=== PATIENT | male | born 1950 | race Caucasian/White ===

== ENCOUNTER → 2018-07-04 08:26 | Outpatient (CLI) | payer OTHER, SELFPAY ==
--- NOTE | 2018-07-04 | DI.US.S_ITS ---
PROCEDURE: US ABD AORTA ANEURYSM SCREEN INDICATIONS: FORMER SMOKER TECHNIQUE: Real time scanning was performed of the aorta and iliac arteries, with image documentation. COMPARISON: None. FINDINGS: Aorta: Proximal aortic diameter measures 2.7 cm. Mid-aorta measures 1.9 cm. Distal aortic diameter is 1.3 cm. Iliac arteries: Right common iliac artery measures 0.8 cm. Left common iliac artery measures 0.8 cm. IMPRESSION: Unremarkable exam. Dictated by: Nica Gill M.D. on 07/04/2018 at 12:50 Approved by: Nica Gill M.D. on 07/04/2018 at 12:51
== END ==
PROVIDERS: Visit Provider Family Medicine
DX: Z13.6 Encounter for screening for cardiovascular disorders (principal)
CPT/HCPCS: 76706

== ENCOUNTER → 2019-05-01 12:56 | Outpatient (CLI) | payer OTHER, MEDICAID, SELFPAY ==
--- NOTE | 2019-05-01 | DI.US.S_ITS ---
PROCEDURE: US PERIPH VENOUS LOW EXTREM RT INDICATIONS: LOCALIZED SWELLING OF RT LOWER LEG TECHNIQUE: Real-time imaging, as well as color and pulse Doppler interrogation, were performed of the lower extremity deep veins from the inguinal ligament to the popliteal fossa. COMPARISON: None. FINDINGS: Within the right popliteal vein, there is thrombus seen, which is nearly occlusive. The common femoral, and femoral veins are normally compressible, and free of intraluminal thrombus. Color and pulse Doppler demonstrate normal phasic intraluminal flow. There is normal augmentation response to distal compression maneuver. IMPRESSION: Popliteal deep venous thrombosis seen. Note: Concordant preliminary findings given by the workers compensation coordinator upon the completion of the examination to Dr. Hernandez at 1:37 PM [place] time on May 01, 2019. Dictated by: Kendall Loredo M.D. on 05/01/2019 at 12:41 Approved by: Kendall Loredo M.D. on 05/01/2019 at 12:42
== END ==
PROVIDERS: Visit Provider Family Medicine
DX: I82.431 Acute embolism and thrombosis of right popliteal vein (principal)
CPT/HCPCS: 93971

== ENCOUNTER 2023-04-19 18:21 | Emergency (ER) | payer OTHER, MEDICAID, SELFPAY ==
[2023-04-19 18:47] VITALS: BP 157/81; PULSE 65; RESP 18; TEMP 36.6; O2SAT 97; BMI 28.3
--- NOTE | 2023-04-19 18:56 | DI.RAD.S_ITS ---
PROCEDURE: XR CHEST 2V INDICATIONS: cough, pain with deep inspiration, blood streaked sputum TECHNIQUE: 2 views of the chest were acquired. COMPARISON: [facility], , CHEST 2 VIEW, 08/09/2012, 10:29. FINDINGS: Surgical changes and devices: None. Lungs and pleura: Lungs are clear. No pleural effusions or pneumothorax. Mediastinum: Mediastinal contours are normal. Heart size is normal. Bones and chest wall: No suspicious bony abnormalities. Soft tissues appear unremarkable. IMPRESSION: No acute cardiopulmonary process. Dictated by: Reymundo Torres M.D. on 04/19/2023 at 19:22 Approved by: Reymundo Torres M.D. on 04/19/2023 at 19:23
--- NOTE | 2023-04-19 20:52 | ED.BACK ---
HPI - Back Pain/Injury General Chief Complaint: Back Pain/Injury Stated Complaint: Back/side strain, Coughing blood Time Seen by Provider: 04/19/23 20:42 Source: patient Mode of arrival: Ambulatory History of Present Illness HPI Narrative: Patient is a 72-year-old male who states that a couple days ago he was working outside. He states that he was pulling on a tree branch with his left arm. He states that he felt like he pulled the muscles in his back. He states the pain is radiating up and down the left side of his back. He thinks that things have improved someone since the onset although he has had some blood-streaked in his sputum when he has coughed forcefully. He denies any shortness of breath. No fevers. Related Data Allergies Allergy/AdvReac Type Severity Reaction Status Date / Time bee venom protein (honey bee) Allergy Intermediate Verified 04/19/23 18:56 Review of Systems Constitutional Constitutional: Reports system reviewed and no additional complaints, except as documented Respiratory Respiratory: Reports system reviewed and no additional complaints, except as documented Gastrointestinal Gastrointestinal: Reports system reviewed and no additional complaints, except as documented Integumentary/Breasts Skin/Breast: Reports system reviewed and no additional complaints, except as documented Hematologic/Lymphatic On Anticoagulants: No Patient History Social History Smoking Status: Current every day smoker Smoking Status: Current every day smoker alcohol intake frequency: holidays/special occasions only Substance Use Type: marijuana Exam Initial Vital Signs Initial Vital Signs: Vital Signs Temperature 97.9 F 04/19/23 18:47 Pulse Rate 65 04/19/23 18:47 Respiratory Rate 18 04/19/23 18:47 Blood Pressure 157/81 H 04/19/23 18:47 Pulse Oximetry 97 04/19/23 18:47 Oxygen Delivery Method Room Air 04/19/23 18:47 Resp Effort & Inspection: normal respiratory effort Auscultation: clear to auscultation bilaterally Cardio Rate: regular rate GI Inspection: normal to inspection Back/Spine/Pelvis Thoracic/Lumbar Spine: paraspinal tenderness and No thoracic spinal tenderness Skin General: no rashes or lesions noted Neuro General: patient alert, patient awake and moves all extremities Extrem General: normal to inspection and capillary refill normal Course Orders Ordered: ED Orders 04/19/23 18:56 XR chest 2V Stat Vital Signs Vital signs: Vital Signs - 8 hr 04/19/23 18:47 Temperature 97.9 F Pulse Rate 65 Respiratory Rate 18 Blood Pressure 157/81 H Pulse Oximetry 97 Oxygen Delivery Method Room Air MDM - Back Pain/Injury Imaging Data Chest x-ray: Radiologist's Impression: PROCEDURE:? XR CHEST 2V ? INDICATIONS:? cough, pain with deep inspiration, blood streaked sputum ? TECHNIQUE:? 2 views of the chest were acquired.? ? COMPARISON:? [facility], , CHEST 2 VIEW, 08/09/2012, 10:29. ? FINDINGS:? ? Surgical changes and devices:? None.? ? Lungs and pleura:? Lungs are clear.? No pleural effusions or pneumothorax.? ? Mediastinum:? Mediastinal contours are normal.? Heart size is normal.? ? Bones and chest wall:? No suspicious bony abnormalities.? Soft tissues appear unremarkable.? ? IMPRESSION:? No acute cardiopulmonary process. [facility] Narrative Medical decision making narrative: No respiratory distress. Chest x-ray is unremarkable. No fractured ribs. No skin changes over the area. I suspect that the blood-tinged sputum is the result of his hard coughing but there is no signs of infection. Reassured patient. Was given return precautions. He expressed understanding and agreement. Discharge Plan Departure Patient Disposition: Home Clinical Impression: Flank strain Instructions: DI for Muscle Strain Activity Restrictions/Additional Instructions: I recommend you continue to take all of your medications as directed. Contact your primary provider for a follow-up. Return to the emergency department for new or worsening symptoms. Stand Alone Forms: Patient Portal/API
== END 2023-04-19 21:04 | disposition home or self-care (01) ==
PROVIDERS: Emergency Provider Emergency Medicine
DX: S39.012A Strain of muscle, fascia and tendon of lower back, initial encounter (principal); X58.XXXA Exposure to other specified factors, initial encounter
CPT/HCPCS: 71046; 99281; 99283

== ENCOUNTER 2023-08-03 17:10 | Inpatient (IN) | payer OTHER, MEDICAID, SELFPAY ==
[2023-08-03] VITALS (16 sets, daily range): BP systolic 126–176; BP diastolic 77–117; PULSE 74–152; RESP 14–25; TEMP 36.6–36.8; O2SAT 94–98; BMI 28.3
--- NOTE | 2023-08-03 18:04 | DI.RAD.S_ITS ---
PROCEDURE: XR CHEST 2V INDICATIONS: dyspnea TECHNIQUE: 2 views of the chest were acquired. COMPARISON: [facility], CR, XR CHEST 2V, 04/19/2023, 19:10. FINDINGS: Surgical changes and devices: None. Lungs and pleura: Focal small area of consolidation in the lingula of the left lung. Small bilateral pleural effusions. No pleural effusions or pneumothorax. Mediastinum: Mediastinal contours are normal. Heart size is normal. Bones and chest wall: No suspicious bony abnormalities. Soft tissues appear unremarkable. IMPRESSION: Small focal pneumonia in the lingula of the left lung. Small bilateral pleural effusions. Comment: Progress films are recommended until clear. Dictated by: Skip Ochoa M.D. on 08/03/2023 at 18:31 Approved by: Skip Ochoa M.D. on 08/03/2023 at 18:33
--- NOTE | 2023-08-03 18:06 | ED.EXTPRO ---
HPI - Extremity Problem <Sultana Dockery PA-C - Last Filed: 08/03/23 19:01> General Chief complaint: Extremity Problem,Nontraumatic Stated complaint: Left leg possible DVT, Doctor referred Time Seen by Provider: 08/03/23 17:47 Source: patient Mode of arrival: Ambulatory History of Present Illness HPI Narrative: Patient is a 72-year-old male with a long history of smoking, currently uses nicotine lozenges and occasional marijuana, who presents with approximately 1 month of shortness of breath. He denies fever or chills. Has occasional pleuritic chest pain, no chest pressure. Reports a family history heart disease, history of a murmur as a child. History of unprovoked right lower extremity DVT, took Eliquis for some time. Complains of posterior left knee pain several weeks ago that has now migrated to his left thigh. Thinks he may have trace left lower extremity edema, no left calf pain. Related Data Home Medications Medication Instructions Recorded Confirmed lisinopril 20 mg tablet 20 mg PO DAILY 08/03/23 08/03/23 oxycodone 5 mg tablet 5 mg PO Q4H PRN Pain (Scale Score 08/03/23 08/03/23 7-10) Allergies Allergy/AdvReac Type Severity Reaction Status Date / Time bee venom protein (honey bee) Allergy Intermediate Verified 08/03/23 17:15 Review of Systems <Sultana Dockery PA-C - Last Filed: 08/03/23 19:01> Review of Systems ROS Unobtainable: All systems reviewed & are unremarkable except as noted in HPI and below Patient History <Sultana Dockery PA-C - Last Filed: 08/03/23 19:01> Social History household members: spouse Smoking Status: Former smoker Smoking Status: Former smoker alcohol intake frequency: holidays/special occasions only Substance Use Type: marijuana Exam <Sultana Dockery PA-C - Last Filed: 08/03/23 19:01> Narrative Exam Narrative: GENERAL: 72 year old patient appears stated age. Well-developed patient, in no acute distress. NEURO: AOx3. HEAD: Atraumatic. Normocephalic. EYES: Pupils equal round and reactive. Extraocular motions intact. No scleral icterus. No injection or drainage. ENT: Nose without bleeding or purulent drainage. Airway patent. NECK: Trachea midline. Non tender CARDIOVASCULAR: Regularly irregular, rate 70-120 RESPIRATORY: Clear to auscultation. Breath sounds equal bilaterally. No wheezes, rales, or rhonchi. GASTROINTESTINAL: Abdomen soft, non-tender, nondistended. EXTREMITIES: Trace edema in left lower extremity, no edema in right lower extremity. No calf tenderness or redness. No abnormality of left thigh where patient is currently having pain. Distal pulses intact. SKIN: No rash or erythema of visible areas Initial Vital Signs Initial Vital Signs: Vital Signs Temperature 97.8 F 08/03/23 17:15 Pulse Rate 74 08/03/23 17:15 Respiratory Rate 18 08/03/23 17:15 Blood Pressure 129/93 H 08/03/23 17:15 Pulse Oximetry 97 08/03/23 17:15 Oxygen Delivery Method Room Air 08/03/23 17:15 <DO Reji Winkler Last Filed: 08/04/23 00:40> Initial Vital Signs Initial Vital Signs: Vital Signs Temperature 97.8 F 08/03/23 17:15 Pulse Rate 74 08/03/23 17:15 Respiratory Rate 18 08/03/23 17:15 Blood Pressure 129/93 H 08/03/23 17:15 Pulse Oximetry 97 08/03/23 17:15 Oxygen Delivery Method Room Air 08/03/23 17:15 Scores <DEMETRIA Pike Last Filed: 08/03/23 19:01> Reshma Criteria for DVT Active Cancer (Treatment within 6 months): No Bedridden recently >3 days or major surgery within 4 weeks: No Calf Swelling >3cm compared to other leg: No Collateral (nonvericose) superficial veins present: No Entire leg swollen: Yes Localized tenderness along the deep vein system: No Pitting edema, confined to symtomatic leg: No Paralysis, paresis, or recent plaster immobilization of ext: No Previously documented DVT: Yes Alternative dx to DVT as likely or more likely: Yes Reshma criteria for DVT: 0 <DO Reji Winkler Last Filed: 08/04/23 00:40> Reshma Criteria for DVT Kyree' criteria for DVT: 0 Course <DEMETRIA Pike Last Filed: 08/03/23 19:01> Orders Ordered: ED Orders 08/03/23 18:03 EKG-12 Lead Stat 08/03/23 18:04 XR chest 2V Stat 08/03/23 18:26 BNP [NT-proBNP (BNP-Adult 18+)] Stat Complete Blood Count AUTO DIFF Stat Comprehensive Metabolic Panel Stat D Dimer Stat Lipase Stat MAG [Magnesium] Stat PT [Prothrombin Time INR] Stat PTT Partial Thromboplastin Paulino Stat Troponin & CK Cardiac Panel Stat 08/03/23 19:10 CT angio chest PE protocol Stat US periph venous low extrem lt Stat 08/03/23 20:31 Trop I [Troponin I] Stat 08/03/23 22:20 PTT Partial Thromboplastin Paulino Q6H 08/03/23 22:20 EC echo doppler complete Urgent Arterial Blood Gas Urgent RT Consult Eval and Treat NOW 08/04/23 05:00 Complete Blood Count AUTO DIFF Routine Comprehensive Metabolic Panel Routine Magnesium Routine Troponin I Routine EKG-12 Lead Routine 08/04/23 09:00 PTT Partial Thromboplastin Paulino Q6H 08/04/23 10:20 PTT Partial Thromboplastin Paulino Q6H 08/04/23 16:20 PTT Partial Thromboplastin Paulino Q6H 08/05/23 05:00 Hemoglobin and Hematocrit DAILY Platelet Count DAILY Acetaminophen (Acetaminophen 325 Mg Tablet) 650 mg PO Q6H PRN PRN Reason: Fever/Mild Pain (1-3) Hydrocodone Bitart/Acetaminophen (Hydrocodone/Acet 5/325 Tablet) 1 tab PO Q4H PRN PRN Reason: Pain, Moderate (4-6) DILTIAZEM (Diltiazem 125 Mg/125 Ml-D5w) 125 mg in 125 mls @ 5 mls/hr IV TITRATE STA; Protocol Stop: 08/04/23 22:30 Last Admin: 08/03/23 23:13 Dose: 15 mg/hr, 15 mls/hr Documented By: JUAN Lactated Ringer's (Lactated Ringers) 1,000 mls @ 75 mls/hr IV CONT SHEMAR Last Admin: 08/03/23 23:16 Dose: 75 mls/hr Documented By: JUAN Heparin Sodium/Dextrose (Heparin Drip) 25,000 unit in 500 mls @ 35.108 mls/hr IV CONT SHEMAR; Protocol Last Admin: 08/03/23 23:14 Dose: 18 units/kg/hr, 35.108 mls/hr Documented By: JUAN Co-signed By: [place] Lorazepam (Lorazepam 2 Mg/Ml Inj) 1 mg IV Q4HR PRN PRN Reason: Anxiety Naloxone HCl (Naloxone 0.4 Mg/Ml Vial) 0.2 mg IV Q2MIN PRN PRN Reason: Opiate Reversal Oxycodone HCl (Oxycodone Ir 5 Mg Tablet) 5 mg PO Q4HR PRN PRN Reason: Pain, Moderate (4-6) Pantoprazole Sodium (Pantoprazole 40 Mg Vial) 40 mg IV DAILY SHEMAR Discontinued Medications Diltiazem HCl (Diltiazem 5 Mg/Ml Sdv) 10 mg IV NOW ONE Stop: 08/03/23 19:16 Last Admin: 08/03/23 19:20 Dose: 10 mg Documented By: DAVID Heparin Sodium (Porcine) (Heparin 5,000 Unit/Ml Vial) 7,800 unit 80 unit/kg (7800 unit) IV NOW ONE Stop: 08/03/23 20:36 Last Admin: 08/03/23 20:47 Dose: 7,800 unit Documented By: DAVID DILTIAZEM (Diltiazem 125 Mg/125 Ml-D5w) 125 mg in 125 mls @ 5 mls/hr IV TITRATE SHEMAR; Protocol Last Titration: 08/03/23 20:36 Dose: 10 mg/hr, 10 mls/hr Documented By: Admin: 08/03/23 19:49 Dose: 5 mg/hr, 5 mls/hr Documented By: DAVID Heparin Sodium/Dextrose (Heparin Drip) 25,000 unit in 500 mls @ 35.108 mls/hr IV CONT SHEMAR; Protocol Last Admin: 08/03/23 20:49 Dose: 18 units/kg/hr, 35.108 mls/hr Documented By: DAVID Co-signed By: ANDRE Lisinopril (Lisinopril 20 Mg Tablet) 40 mg PO NOW ONE Stop: 08/04/23 00:32 Nicotine (Nicotine 14 Patch) 14 mg TOP NOW ONE Stop: 08/03/23 22:21 Last Admin: 08/03/23 23:52 Dose: Not Given Documented By: JUAN Vital Signs Vital signs: Vital Signs - 8 hr 08/03/23 17:15 08/03/23 17:56 08/03/23 18:00 Temperature 97.8 F Pulse Rate 74 86 94 H Respiratory Rate 18 Blood Pressure 129/93 H Pulse Oximetry 97 97 97 Oxygen Delivery Method Room Air 08/03/23 18:25 08/03/23 18:25 08/03/23 18:30 Temperature Pulse Rate 152 H 137 H Respiratory Rate 18 Blood Pressure 139/100 H Pulse Oximetry 97 96 Oxygen Delivery Method 08/03/23 19:00 08/03/23 19:00 08/03/23 19:20 Temperature Pulse Rate 141 H 141 H Respiratory Rate 14 Blood Pressure 128/77 128/77 Pulse Oximetry 98 Oxygen Delivery Method 08/03/23 19:30 08/03/23 19:32 08/03/23 19:32 Temperature Pulse Rate 137 H 148 H Respiratory Rate 18 Blood Pressure 153/109 H Pulse Oximetry 98 98 Oxygen Delivery Method 08/03/23 20:00 08/03/23 20:30 08/03/23 20:30 Temperature Pulse Rate 124 H 133 H Respiratory Rate 14 14 Blood Pressure 126/89 Pulse Oximetry 96 97 Oxygen Delivery Method 08/03/23 21:00 08/03/23 21:00 Temperature Pulse Rate 130 H Respiratory Rate 16 Blood Pressure 137/106 H Pulse Oximetry 97 Oxygen Delivery Method <Elyssa Logan, DO - Last Filed: 08/04/23 00:40> Orders Ordered: ED Orders 08/03/23 18:03 EKG-12 Lead Stat 08/03/23 18:04 XR chest 2V Stat 08/03/23 18:26 BNP [NT-proBNP (BNP-Adult 18+)] Stat Complete Blood Count AUTO DIFF Stat Comprehensive Metabolic Panel Stat D Dimer Stat Lipase Stat MAG [Magnesium] Stat PT [Prothrombin Time INR] Stat PTT Partial Thromboplastin Paulino Stat Troponin & CK Cardiac Panel Stat 08/03/23 19:10 CT angio chest PE protocol Stat US periph venous low extrem lt Stat 08/03/23 20:31 Trop I [Troponin I] Stat 08/03/23 22:20 PTT Partial Thromboplastin Paulino Q6H 08/03/23 22:20 EC echo doppler complete Urgent Arterial Blood Gas Urgent RT Consult Eval and Treat NOW 08/04/23 05:00 Complete Blood Count AUTO DIFF Routine Comprehensive Metabolic Panel Routine Magnesium Routine Troponin I Routine EKG-12 Lead Routine 08/04/23 09:00 PTT Partial Thromboplastin Paulino Q6H 08/04/23 10:20 PTT Partial Thromboplastin Paulino Q6H 08/04/23 16:20 PTT Partial Thromboplastin Paulino Q6H 08/05/23 05:00 Hemoglobin and Hematocrit DAILY Platelet Count DAILY Acetaminophen (Acetaminophen 325 Mg Tablet) 650 mg PO Q6H PRN PRN Reason: Fever/Mild Pain (1-3) Hydrocodone Bitart/Acetaminophen (Hydrocodone/Acet 5/325 Tablet) 1 tab PO Q4H PRN PRN Reason: Pain, Moderate (4-6) DILTIAZEM (Diltiazem 125 Mg/125 Ml-D5w) 125 mg in 125 mls @ 5 mls/hr IV TITRATE STA; Protocol Stop: 08/04/23 22:30 Last Admin: 08/03/23 23:13 Dose: 15 mg/hr, 15 mls/hr Documented By: JUAN Lactated Ringer's (Lactated Ringers) 1,000 mls @ 75 mls/hr IV CONT SHEMAR Last Admin: 08/03/23 23:16 Dose: 75 mls/hr Documented By: JUAN Heparin Sodium/Dextrose (Heparin Drip) 25,000 unit in 500 mls @ 35.108 mls/hr IV CONT SHEMAR; Protocol Last Admin: 08/03/23 23:14 Dose: 18 units/kg/hr, 35.108 mls/hr Documented By: JUAN Co-signed By: [place] Lorazepam (Lorazepam 2 Mg/Ml Inj) 1 mg IV Q4HR PRN PRN Reason: Anxiety Naloxone HCl (Naloxone 0.4 Mg/Ml Vial) 0.2 mg IV Q2MIN PRN PRN Reason: Opiate Reversal Oxycodone HCl (Oxycodone Ir 5 Mg Tablet) 5 mg PO Q4HR PRN PRN Reason: Pain, Moderate (4-6) Pantoprazole Sodium (Pantoprazole 40 Mg Vial) 40 mg IV DAILY SHEMAR Discontinued Medications Diltiazem HCl (Diltiazem 5 Mg/Ml Sdv) 10 mg IV NOW ONE Stop: 08/03/23 19:16 Last Admin: 08/03/23 19:20 Dose: 10 mg Documented By: DAVID Heparin Sodium (Porcine) (Heparin 5,000 Unit/Ml Vial) 7,800 unit 80 unit/kg (7800 unit) IV NOW ONE Stop: 08/03/23 20:36 Last Admin: 08/03/23 20:47 Dose: 7,800 unit Documented By: DAVID DILTIAZEM (Diltiazem 125 Mg/125 Ml-D5w) 125 mg in 125 mls @ 5 mls/hr IV TITRATE SHEMAR; Protocol Last Titration: 08/03/23 20:36 Dose: 10 mg/hr, 10 mls/hr Documented By: Admin: 08/03/23 19:49 Dose: 5 mg/hr, 5 mls/hr Documented By: DAVID Heparin Sodium/Dextrose (Heparin Drip) 25,000 unit in 500 mls @ 35.108 mls/hr IV CONT SHEMAR; Protocol Last Admin: 08/03/23 20:49 Dose: 18 units/kg/hr, 35.108 mls/hr Documented By: DAVID Co-signed By: ANDRE Lisinopril (Lisinopril 20 Mg Tablet) 40 mg PO NOW ONE Stop: 08/04/23 00:32 Nicotine (Nicotine 14 Patch) 14 mg TOP NOW ONE Stop: 08/03/23 22:21 Last Admin: 08/03/23 23:52 Dose: Not Given Documented By: JUAN Vital Signs Vital signs: Vital Signs - 8 hr 08/03/23 17:15 08/03/23 17:56 08/03/23 18:00 Temperature 97.8 F Pulse Rate 74 86 94 H Respiratory Rate 18 Blood Pressure 129/93 H Pulse Oximetry 97 97 97 Oxygen Delivery Method Room Air 08/03/23 18:25 08/03/23 18:25 08/03/23 18:30 Temperature Pulse Rate 152 H 137 H Respiratory Rate 18 Blood Pressure 139/100 H Pulse Oximetry 97 96 Oxygen Delivery Method 08/03/23 19:00 08/03/23 19:00 08/03/23 19:20 Temperature Pulse Rate 141 H 141 H Respiratory Rate 14 Blood Pressure 128/77 128/77 Pulse Oximetry 98 Oxygen Delivery Method 08/03/23 19:30 08/03/23 19:32 08/03/23 19:32 Temperature Pulse Rate 137 H 148 H Respiratory Rate 18 Blood Pressure 153/109 H Pulse Oximetry 98 98 Oxygen Delivery Method 08/03/23 20:00 08/03/23 20:30 08/03/23 20:30 Temperature Pulse Rate 124 H 133 H Respiratory Rate 14 14 Blood Pressure 126/89 Pulse Oximetry 96 97 Oxygen Delivery Method 08/03/23 21:00 08/03/23 21:00 Temperature Pulse Rate 130 H Respiratory Rate 16 Blood Pressure 137/106 H Pulse Oximetry 97 Oxygen Delivery Method MDM - Extremity (Nontraumatic) <Sultana Dockery PA-C - Last Filed: 08/03/23 19:01> Lab Data 08/03/23 18:26 08/03/23 18:26 Labs: Lab Results 08/03/23 08/03/23 Range/Units 18:26 20:31 WBC 10.6 (4.5-11.0) X10^3/uL RBC 4.79 (4.5-5.9) X10^6/uL Hgb 14.3 (13.5-17.5) g/dL Hct 42.6 (41-53) % MCV 88.9 (80-100) fL MCH 29.9 (26-34) PG MCHC 33.6 (30-36) % RDW 16.5 H (11.6-14.8) % Plt Count 222 (150-400) X10^3/uL Neut % (Auto) 79.4 H (50-75) % Lymph % (Auto) 14.0 L (25-40) % Gregory % (Auto) 4.8 (3-14) % Eos % (Auto) 0.9 L (2-4) % Baso % (Auto) 0.9 (0-2) % Neut # (Auto) 8400 H (3436-4593) /uL Lymph # (Auto) 1500 (8834-3798) /uL Gregory # (Auto) 500 (0-900) /uL Eos # (Auto) 100 (0-450) /uL Baso # (Auto) 100 (0-100) /uL PT 13.2 H (9.4-12.5) SECONDS INR 1.2 (0.9-1.3) APTT 26 (25.1-36.5) SECONDS D-Dimer 59121 H (<500) ng/ml Sodium 137 (137-145) mmol/L Potassium 4.2 (3.4-5.1) mmol/L Chloride 102 (98-107) mmol/L Carbon Dioxide 31 (22-32) mmol/L BUN 21 H (9-20) mg/dL Creatinine 1.14 (0.66-1.25) mg/dL Estimated GFR > 60 (>60) mL/min BUN/Creatinine Ratio 18.4 (6-22) Glucose 129 H (80-110) mg/dL Calcium 9.4 (8.4-10.2) mg/dL Magnesium 1.9 (1.6-2.3) mg/dL Total Bilirubin 0.8 (0.2-1.3) mg/dL AST 29 (17-59) IU/L ALT 25 (<50) IU/L Alkaline Phosphatase 63 (38-126) U/L Total Creatine Kinase 65 (55-170) U/L Troponin I 0.055 H 0.053 H (0.01-0.034) ng/mL NT-Pro-B Natriuret Pep 5380 H (<125) pg/mL Total Protein 7.2 (6.3-8.2) g/dL Albumin 3.7 (3.5-5.0) g/dL Globulin 3.5 (1.7-4.1) g/dL Albumin/Globulin Ratio 1.1 (1.0-2.8) Lipase 52 (23-300) U/L MDM Narrative Medical decision making narrative: Multiple etiologies for patient's symptoms considered including, but not limited to: Pneumonia, CHF, COPD, DVT, PE, AFib Patient with approximately 1 month of shortness of breath. No evidence of fluid overload or infection. On exam, patient immediately noted to have irregular heart rate and rhythm with a rate 70s to 120s. Patient denies any palpitations or chest pain. We will obtain EKG, chest x-ray, labs including d dimer. Patient has history of DVT. Has trace edema of the left lower extremity today without calf swelling or tenderness. Wells criteria score 0. End of shift sign-out to Dr. Logan who will continue care. <Elyssa Logan, - Last Filed: 08/04/23 00:40> Lab Data Labs: Lab Results 08/03/23 08/03/23 Range/Units 18:26 20:31 WBC 10.6 (4.5-11.0) X10^3/uL RBC 4.79 (4.5-5.9) X10^6/uL Hgb 14.3 (13.5-17.5) g/dL Hct 42.6 (41-53) % MCV 88.9 (80-100) fL MCH 29.9 (26-34) PG MCHC 33.6 (30-36) % RDW 16.5 H (11.6-14.8) % Plt Count 222 (150-400) X10^3/uL Neut % (Auto) 79.4 H (50-75) % Lymph % (Auto) 14.0 L (25-40) % Gregory % (Auto) 4.8 (3-14) % Eos % (Auto) 0.9 L (2-4) % Baso % (Auto) 0.9 (0-2) % Neut # (Auto) 8400 H (0170-0830) /uL Lymph # (Auto) 1500 (8466-8168) /uL Gregory # (Auto) 500 (0-900) /uL Eos # (Auto) 100 (0-450) /uL Baso # (Auto) 100 (0-100) /uL PT 13.2 H (9.4-12.5) SECONDS INR 1.2 (0.9-1.3) APTT 26 (25.1-36.5) SECONDS D-Dimer 78584 H (<500) ng/ml Sodium 137 (137-145) mmol/L Potassium 4.2 (3.4-5.1) mmol/L Chloride 102 (98-107) mmol/L Carbon Dioxide 31 (22-32) mmol/L BUN 21 H (9-20) mg/dL Creatinine 1.14 (0.66-1.25) mg/dL Estimated GFR > 60 (>60) mL/min BUN/Creatinine Ratio 18.4 (6-22) Glucose 129 H (80-110) mg/dL Calcium 9.4 (8.4-10.2) mg/dL Magnesium 1.9 (1.6-2.3) mg/dL Total Bilirubin 0.8 (0.2-1.3) mg/dL AST 29 (17-59) IU/L ALT 25 (<50) IU/L Alkaline Phosphatase 63 (38-126) U/L Total Creatine Kinase 65 (55-170) U/L Troponin I 0.055 H 0.053 H (0.01-0.034) ng/mL NT-Pro-B Natriuret Pep 5380 H (<125) pg/mL Total Protein 7.2 (6.3-8.2) g/dL Albumin 3.7 (3.5-5.0) g/dL Globulin 3.5 (1.7-4.1) g/dL Albumin/Globulin Ratio 1.1 (1.0-2.8) Lipase 52 (23-300) U/L ECG Data Attestation EKG: I personally reviewed and interpreted this ECG as follows: Interpretation: Rate of 126 QRS is 72 QTC of 411. No acute ST elevation or depression, nonspecific change. MDM Narrative Medical decision making narrative: Multiple etiologies for patient's symptoms considered including, but not limited to: Pneumonia, CHF, COPD, DVT, PE, AFib Patient with approximately 1 month of shortness of breath. No evidence of fluid overload or infection. On exam, patient immediately noted to have irregular heart rate and rhythm with a rate 70s to 120s. Patient denies any palpitations or chest pain. We will obtain EKG, chest x-ray, labs including d dimer. Patient has history of DVT. Has trace edema of the left lower extremity today without calf swelling or tenderness. Wells criteria score 0. End of shift sign-out to Dr. Logan who will continue care. Patient signed out to myself after patient developed AFib RVR. Patient was started with 10 mg adult had some slowing of his heart rate but persistent was started on a diltiazem drip. Workup shows indeterminate troponin, BNP is quite elevated, chest x-ray shows possible consolidation. Patient does not have any infectious changes suspect symptoms are somewhat related to CHF. He is noticed left lower extremity swelling does have a history DVT is not currently anticoagulated. States that they never figured out why he had a blood clot in the past. He did smoke until about 2 or 3 weeks ago. D-dimer was elevated on CT angio shows multiple acute PEs including right main pulmonary embolus and occlusive emboli to the right upper lobe and right middle, normal LV/RV ratio, questionable mild cardiomegaly, questionable masslike consolidation versus large mass lingular portion of the left upper lobe and probable pulmonary infarct right middle lobe with bilateral pleural effusions right greater than left, COPD and severe coronary artery calcification. Patient's also had a DVT ultrasound which was obtained which shows DVT in the left lower extremity throughout. PESI score is 111, right heart strain appreciated on CT angio. Heparin drip was initiated. Spoke with Dr. Francisco who accepts. Discussed CT findings normal LV RV ratio was not tachycardic initially but then jumped up. Likely not a candidate for intervention based on current findings but possibly with echo tomorrow. Repeat troponin is slightly downward at 0.053 Critical Care Time <Elyssa Logan, - Last Filed: 08/04/23 00:40> Critical Care Time Critical Care Time: Yes Total Critical Care Time: 35 Attestation: The high probability of a clinically significant, sudden or life threatening deterioration of the [cardiac, pulm] system(s) required my full and direct attention, intervention and personal management. The aggregate critical care time was [] minutes. This time is in addition to time spent performing reported procedures but includes the following: [x] Data Review and interpretation [x] Patient assessment and monitoring of vital signs [x] Documentation [x] Medication orders and management Discharge Plan Departure Patient Disposition: Admitted As Inpatient Clinical Impression: Pulmonary embolism and infarction, Left leg DVT, Atrial fibrillation with rapid ventricular response Admit Date/Time: 08/03/23 21:35 Admit Provider: Nicanor Francisco
--- NOTE | 2023-08-03 18:32 | PC.NURSE ---
patient stated that 2 weeks ago his left leg began having cramps and then the pain moved up his thigh. He also stated that he has been having SOB for about a month. He says that he recently has been feeling SOB while walking his dog.
[2023-08-03 18:36] LABS: Add Manual Diff / Slide Review NO; Basophils Absolute Auto 100 /uL (0-100); Basophils Percent Auto 0.9 % (0-2); Eosinophils Absolute Auto 100 /uL (0-450); Eosinophils Percent Auto 0.9 % (2-4); Hematocrit 42.6 % (41-53); Hemoglobin 14.3 g/dL (13.5-17.5); Lymphocytes Absolute Auto 1500 /uL (1100-4500); Mean Corpuscular HGB Conc 33.6 % (30-36); Mean Corpuscular Hemoglobin 29.9 PG (26-34); Mean Corpuscular Volume 88.9 fL (80-100); Monocytes Absolute Auto 500 /uL (0-900); Monocytes Percent Auto 4.8 % (3-14); Neutrophils Absolute Auto 8400 /uL (1500-7000); Neutrophils Percent Auto 79.4 % (50-75); Platelet Count 222 X10^3/uL (150-400); Red Blood Cell Count 4.79 X10^6/uL (4.5-5.9); Red Cell Distribution Width 16.5 % (11.6-14.8); White Blood Cell Count 10.6 X10^3/uL (4.5-11.0)
[2023-08-03 18:50] LABS: INR 1.2 (0.9-1.3); Prothrombin Time 13.2 SECONDS (9.4-12.5)
[2023-08-03 18:52] LABS: PTT Partial Thromboplastin Tim 26 SECONDS (25.1-36.5)
[2023-08-03 18:55] LABS: Magnesium 1.9 mg/dL (1.6-2.3)
[2023-08-03 18:57] LABS: Alanine Aminotransferase 25 IU/L (<50); Albumin 3.7 g/dL (3.5-5.0); Albumin Globulin Ratio 1.1 (1.0-2.8); Alkaline Phosphatase 63 U/L (38-126); Aspartate Aminotransferase 29 IU/L (17-59); BUN Creatinine Ratio 18.4 (6-22); Bilirubin Total 0.8 mg/dL (0.2-1.3); Blood Urea Nitrogen 21 mg/dL (9-20); Calcium 9.4 mg/dL (8.4-10.2); Carbon Dioxide 31 mmol/L (22-32); Chloride 102 mmol/L (98-107); Creatine Kinase 65 U/L (55-170); Estimated Glomerular Filt Rate > 60 mL/min (>60); Globulin 3.5 g/dL (1.7-4.1); Glucose 129 mg/dL (80-110); HEMOLYSIS < 15 (0-50); Lipase 52 U/L (23-300); Potassium 4.2 mmol/L (3.4-5.1); Sodium 137 mmol/L (137-145); Total Protein 7.2 g/dL (6.3-8.2)
[2023-08-03 19:06] LABS: D Dimer 12553 ng/ml (<500); NT-proBNP (BNP-Adult 18+) 5380 pg/mL (<125)
[2023-08-03 19:08] LABS: Troponin I 0.055 ng/mL (0.01-0.034)
--- NOTE | 2023-08-03 19:10 | DI.CT.S_ITS ---
PROCEDURE: CT ANGIO CHEST PE PROTOCOL INDICATIONS: new afib, sob x 1 month, LLE swelling, +dimer, hx dvt TECHNIQUE: After the administration of intravenous contrast, 2 mm thick sections acquired from the pulmonary apices to the posterior costophrenic angles. 3-dimensional maximum intensity projection (MIP) coronal and sagittal reformats were then acquired through the thorax. For radiation dose reduction, the following was used: automated exposure control, adjustment of mA and/or kV according to patient size. COMPARISON: None. FINDINGS: Image quality: Diagnostic. Pulmonary arteries: Right main pulmonary artery embolus with extension into the right upper lobe pulmonary artery and right middle lobe pulmonary artery where it is occlusive. There is right lower lobe basilar pulmonary artery embolus, as well. There is also left upper lobe lingular pulmonary artery embolus as well as nonocclusive left lower lobe pulmonary artery embolus. Lungs and pleura: Lobulated [id number] right pleural effusion. Small mildly lobulated left pleural effusion. Question masslike consolidation versus ill-defined mass involving the lingula of the left lung measuring 3.7 x 4.5 cm. Possible pulmonary infarct involving the right middle lobe with peripheral consolidation. Emphysematous change. Mediastinum: Question mild cardiomegaly. Normal RV LV ratio indicating that right heart strain may not be present. There is a small amount of reflux of contrast into the inferior vena cava. There is advanced coronary artery atherosclerotic calcification.. No mediastinal or hilar adenopathy. Thoracic aorta is normal in caliber and enhancement. Esophagus is normal in caliber, without hiatal hernia. Bones and chest wall: No suspicious bony lesions. Ribs and thoracic spine appear intact throughout. No axillary or supraclavicular adenopathy. No thyroid nodules which require sonographic follow up, per consensus guidelines. Upper Abdomen: Visualized upper abdominal solid organs appear normal in the early arterial phase of enhancement. IMPRESSION: 1. Multiple acute pulmonary emboli including right main pulmonary embolus and occlusive pulmonary emboli to the right upper lobe and right middle lobe pulmonary arteries. 2. Normal LV RV ratio. Question mild cardiomegaly. 3. Question masslike consolidation versus large mass in the lingular portion of the left upper lobe. Recommend follow-up CT in 2-3 months. 4. Probable pulmonary infarct in the right middle lobe. 5. Bilateral pleural effusions, right greater than left. 6. COPD. 7. Severe coronary artery calcifications. Comment: Consider ECHO to evaluate for the presence or absence of right heart strain. Recommend repeat CT in 2-3 months to re-evaluate the lingula of the left lung. Dictated by: Skip Ochoa M.D. on 08/03/2023 at 20:10 Approved by: Skip Ochoa M.D. on 08/03/2023 at 20:16
--- NOTE | 2023-08-03 19:10 | DI.US.S_ITS ---
PROCEDURE: US PERIPH VENOUS LOW EXTREM LT INDICATIONS: LLE swelling, new afib, sob, hx dvt TECHNIQUE: Real-time imaging, as well as color and pulse Doppler interrogation, were performed of the lower extremity deep veins from the inguinal ligament to the popliteal fossa, with documentation of the visualized calf veins. COMPARISON: None. FINDINGS: Greater saphenous vein is patent. Common femoral, profunda, femoral, and popliteal veins demonstrate occlusive thrombus. Calf veins are not well seen. IMPRESSION: Extensive DVT in the left lower extremity. Dictated by: Galdino Franco M.D. on 08/03/2023 at 20:30 Approved by: Galdino Franco M.D. on 08/03/2023 at 20:33
[2023-08-03] MEDS: dilTIAZem 5 MG/ML SDV 10 MG IV (19:20)
[2023-08-03] MEDS: DILTIAZEM 125 MG/125 ML PIGGYBACK IV (19:49)
[2023-08-03] MEDS: HEPARIN 5,000 UNIT/ML VIAL 7800 UNIT IV (20:47)
[2023-08-03] MEDS: HEPARIN DRIP 25,000 UNIT/500 ML IV.SOLN 35.108 UNIT IV ×2 (20:49→23:14)
[2023-08-03 21:11] LABS: Troponin I 0.053 ng/mL (0.01-0.034)
--- NOTE | 2023-08-03 22:20 | DI.ECHO.S_ITS ---
[facility] +---------+ : : [address] [place] : : : : [id number] : : : : Phone: [phone]+ Echocardiogram Report + + :Name: MICHAEL WEEKS Study Date: 08/04/2023 Height: 73 in : :[facility] ReadingLocation: Weight: 215 lb : : Gender: Male BSA: 2.2 m2 : :: 1950 Age: 72 yrs BP: 152/108 mmHg: :Reason For Study: ATRIAL FIBRILLATION : :Ordering Physician: FATOUMATA, : :PORFIRIO Performed By: Kimberly Arias : :Referring: PORFIRIO HAM : + + Interpretation Summary 1) Normal left ventricular thickness and size with moderately to severely systolic function (EF 30-35%). 2) Borderline enlarged right ventricle wtih mildly reduced function. 3) There is mild to moderate mitral regurgitation. 4) Atrial fibrillation present during the study. Hypertension also present during the study (BP 152/108mmHg). 5) The ascending aorta is mildly enlarged at 4.1cm. 6) No prior Echo available for comparison. Procedure: A two-dimensional transthoracic echocardiogram with color flow and Doppler was performed. The study quality was technically adequate. There is no prior echocardiogram noted for this patient. A contrast injection of Definity was performed to improve assessment of LV function. The patient was in atrial fibrillation with heart rates between 85-123 bpm during the exam. Left Ventricle: The left ventricle is normal in size and wall thickness. A false chord is noted (normal variant). The ejection fraction is estimated to be 30-35%. There is moderate to severe global hypokinesis of the left ventricle. Diastolic function could not be accurately assessed due to atrial fibrillation. Right Ventricle: The right ventricle is borderline dilated. Right ventricular systolic function is mildly reduced. Atria: The left atrium is moderately dilated. Right atrial size is normal. There is no Doppler evidence for an interatrial shunt. Mitral Valve: The mitral valve leaflets appear mildly thickened, but open well. There is mild to moderate mitral regurgitation. Aortic Valve: The aortic valve is mildly calcified. There is discrete nodular thickening of the non- coronary cusp. There is mild aortic valve sclerosis. There is no aortic valve stenosis. There is mild aortic regurgitation. Tricuspid Valve: The tricuspid valve leaflets are thin and pliable. There is mild tricuspid regurgitation. Pulmonary artery pressures cannot be estimated because of the lack of a measurable TR jet velocity. Pulmonic Valve: The pulmonic valve is not well seen, but is grossly normal. There is mild pulmonic regurgitation. Great Vessels: The aortic root is normal size. The ascending aorta is mildly enlarged. The IVC is dilated (diameter is greater than 2.1 cm) yet it collapses greater than 50% with a sniff. This suggests a right atrial pressure of 8 mm Hg. Pericardium/ Pleura There is no pericardial effusion. There is no pleural effusion. MMode/2D Measurements & Calculations LVIDd: 5.2 cm LVOT diam: 2.2 cm LVIDs: 4.3 cm Ao root diam: 3.7 cm FS: 17.2 % asc Aorta Diam: 4.1 cm EPSS: 1.8 cm IVSd: 0.93 cm LVPWd: 0.89 cm LV marcum. diameter/BSA (cm/m^2): 2.4 LV sys. diameter/BSA (cm/m^2): 1.9 LA A2 area: 24.7 cm2 RA long axis: 5.9 cm LA A4 area: 24.7 cm2 RA area: 21.2 cm2 LA length (vol): 5.7 cm RA vol: 65.0 ml LA vol: 90.9 ml RA : 29.3 ml/m2 LA vol index: 41.0 ml/m2 IVC diam: 2.3 cm RVD1 (basal): 4.2 cm RVD2 (mid): 2.5 cm TAPSE: 1.4 cm Doppler Measurements & Calculations Ao V2 max: 172.3 cm/sec LVOT Max [place]: 90.8 cm/sec Ao V2 mean: 136.4 cm/sec LV V1 max P.3 mmHg Ao max P.9 mmHg LV V1 VTI: 13.9 cm Ao mean P.0 mmHg LAKIA(I,D): 2.0 cm2 Ao V2 VTI: 27.1 cm LAKIA(V,D): 2.0 cm2 sev ratio: 0.51 LAKIA indexed to BSA (cm^2/m^2): 0.88 MV E max salomón: 90.4 cm/sec PA V2 max: 107.7 cm/sec MV A max salom[place]: 2.9 cm/sec PA V2 mean: 70.9 cm/sec MV E/A: 30.9 PA mean P.4 mmHg Med Peak E' [place]: 6.4 cm/sec PA pr(Accel): 51.6 mmHg E/E' med: 14.1 Lat Peak E' [place]: 7.5 cm/sec E/E' lat: 12.0 E/e' average: 13.1 MV dec time: 0.18 sec MR ERO: 0.34 cm2 MR PISA: 4.6 cm2 SV(LVOT): 53.1 ml MR flow rate: 151.9 cm3/sec MR PISA radius: 0.86 cm Reading Physician:01:11 PM
[2023-08-03 22:39] LABS: Appearance Urine UA CLEAR; Bilirubin Urine UA NEGATIVE (NEGATIVE); Color Urine UA YELLOW; Glucose Urine UA NEGATIVE (Negative); Ketones Urine UA NEGATIVE (NEGATIVE); Leukocyte Esterase Urine UA NEGATIVE (NEGATIVE); Nitrite Urine UA NEGATIVE (Negative); Occult Blood Urine UA TRACE-INTACT (Negative); Protein Urine UA 1+ (Negative); Urobilinogen Urine UA 0.2 E.U./dL (0.2); pH Urine UA 6.5 (4.5-8.0)
[2023-08-03 22:51] LABS: Bacteria Urine None Seen; Culture Indicated Urine Cult Not Indicated; RBC Urine 0-1/HPF (0-5/HPF); Squamous Epithelial Cell Urine None Seen (0-5/HPF); WBC Urine None Seen (0-5/HPF)
[2023-08-03] MEDS: DILTIAZEM 125 MG/125 ML PIGGYBACK 15 MG IV (23:13)
[2023-08-03] MEDS: LACTATED RINGERS 1,000 ML 75 ML IV (23:16)
[2023-08-03 23:42] LABS: MRSA (Nasal) PCR Not Detected (Not Detect)
[2023-08-04] VITALS (67 sets, daily range): BP systolic 104–212; BP diastolic 75–128; PULSE 85–141; RESP 9–57; TEMP 36.2–36.9; O2SAT 92–100; BMI 28.3
[2023-08-04] MEDS: lisinopriL 20 MG TABLET 40 MG PO (00:38)
[2023-08-04] MEDS: OXYCODONE IR 5 MG TABLET PO ×3 (00:38→21:00)
[2023-08-04 03:27] LABS: Add Manual Diff / Slide Review NO; Basophils Absolute Auto 100 /uL (0-100); Basophils Percent Auto 0.5 % (0-2); Eosinophils Absolute Auto 100 /uL (0-450); Eosinophils Percent Auto 1.3 % (2-4); Hematocrit 41.5 % (41-53); Lymphocytes Absolute Auto 1700 /uL (1100-4500); Lymphocytes Percent Auto 16.6 % (25-40); Mean Corpuscular HGB Conc 33.6 % (30-36); Mean Corpuscular Hemoglobin 30.1 PG (26-34); Mean Corpuscular Volume 89.7 fL (80-100); Monocytes Absolute Auto 700 /uL (0-900); Monocytes Percent Auto 6.3 % (3-14); Neutrophils Absolute Auto 7800 /uL (1500-7000); Neutrophils Percent Auto 75.3 % (50-75); Platelet Count 219 X10^3/uL (150-400); Red Blood Cell Count 4.63 X10^6/uL (4.5-5.9); Red Cell Distribution Width 16.7 % (11.6-14.8); White Blood Cell Count 10.3 X10^3/uL (4.5-11.0)
[2023-08-04 03:41] LABS: Alanine Aminotransferase 22 IU/L (<50); Albumin 3.4 g/dL (3.5-5.0); Albumin Globulin Ratio 1.1 (1.0-2.8); Alkaline Phosphatase 63 U/L (38-126); Aspartate Aminotransferase 25 IU/L (17-59); Bilirubin Total 0.8 mg/dL (0.2-1.3); Blood Urea Nitrogen 20 mg/dL (9-20); Carbon Dioxide 26 mmol/L (22-32); Chloride 104 mmol/L (98-107); Estimated Glomerular Filt Rate > 60 mL/min (>60); Globulin 3.2 g/dL (1.7-4.1); Glucose 141 mg/dL (80-110); HEMOLYSIS < 15 (0-50); Magnesium 1.9 mg/dL (1.6-2.3); Potassium 4.2 mmol/L (3.4-5.1); Sodium 137 mmol/L (137-145); Total Protein 6.6 g/dL (6.3-8.2)
[2023-08-04 03:50] LABS: PTT Partial Thromboplastin Tim 95 SECONDS (25.1-36.5)
[2023-08-04 03:52] LABS: Troponin I 0.052 ng/mL (0.01-0.034)
[2023-08-04] MEDS: DILTIAZEM 125 MG/125 ML PIGGYBACK 15 MG IV ×2 (04:23→12:55)
[2023-08-04] MEDS: LORazepam 2 MG/ML INJ 1 MG IV ×3 (05:58→20:59)
--- NOTE | 2023-08-04 06:09 | P.HP_ITS ---
History of Present Illness History of Present Illness Date Patient Seen: 08/03/23 Time Patient Seen: 10:00 Chief complaint: Left leg possible DVT, Doctor referred Narrative: 72-year-old male with a past medical history of hypertension venous thromboembolus and smoking presents the request of his primary care provider to the emergency department. Patient states approximately 1 month ago began having shortness of breath. Symptoms gradually progressed during this time. He would also noticed some swelling in his lower extremity edema here in the past few weeks. Symptoms have progressively gotten worse. This shortness of breath does have a smoking history. does not recognize increased productive cough. Did not have any significant fevers or chills. Did have some vague discomfort in his chest. And intermittent palpitations. Patient had a history of a venous thromboembolism took some Eliquis for some time but there was no direct cause they found and so he stopped that. He also recounts that he is had some left knee pain for several weeks that if Rhonda slowly progressed until lower thigh pain. And maybe some increasing swelling. [facility] Social History household members: spouse Smoking Status: Former smoker Meds Home Medications and Allergies Home Medications Medication Instructions Recorded Confirmed Type lisinopril 20 mg tablet 20 mg PO DAILY 08/03/23 08/03/23 History oxycodone 5 mg tablet 5 mg PO Q4H PRN Pain (Scale Score 08/03/23 08/03/23 History 7-10) Allergies Allergy/AdvReac Type Severity Reaction Status Date / Time bee venom protein (honey bee) Allergy Intermediate Verified 08/03/23 17:15 Exam Vital Signs (past 8 hours): - 08/03/23 22:20 08/03/23 23:00 08/03/23 23:00 Temperature 98.3 F Pulse Rate 124 H 135 H Respiratory Rate 17 21 Blood Pressure 176/99 H 165/117 H Pulse Oximetry 94 95 Oxygen Delivery Method 08/03/23 23:00 08/03/23 23:08 08/04/23 00:00 Temperature 97.6 F Pulse Rate 135 H Respiratory Rate 25 H Blood Pressure 172/97 H Pulse Oximetry 95 Oxygen Delivery Method Room Air 08/04/23 00:00 08/04/23 00:30 08/04/23 00:38 Temperature Pulse Rate 129 H 127 H 141 H Respiratory Rate 20 41 H Blood Pressure 172/97 H Pulse Oximetry 95 94 Oxygen Delivery Method 08/04/23 01:00 08/04/23 01:02 08/04/23 01:02 Temperature Pulse Rate 123 H 128 H Respiratory Rate 18 20 Blood Pressure 136/92 H Pulse Oximetry 96 96 Oxygen Delivery Method 08/04/23 02:00 08/04/23 02:00 08/04/23 02:05 Temperature Pulse Rate 120 H 117 H Respiratory Rate 16 20 Blood Pressure 156/111 H Pulse Oximetry 96 96 Oxygen Delivery Method 08/04/23 03:00 08/04/23 03:00 08/04/23 03:02 Temperature Pulse Rate 116 H 117 H Respiratory Rate 16 18 Blood Pressure 131/86 Pulse Oximetry 93 93 Oxygen Delivery Method 08/04/23 03:19 08/04/23 04:01 08/04/23 04:01 Temperature 97.1 F L Pulse Rate 120 H Respiratory Rate 22 Blood Pressure 181/88 H Pulse Oximetry 94 Oxygen Delivery Method Room Air 08/04/23 04:09 08/04/23 05:01 08/04/23 05:01 Temperature Pulse Rate 120 H 123 H Respiratory Rate 26 H 18 Blood Pressure 130/94 H Pulse Oximetry 93 93 Oxygen Delivery Method 08/04/23 05:03 Temperature Pulse Rate 118 H Respiratory Rate 20 Blood Pressure Pulse Oximetry 94 Oxygen Delivery Method Oxygen Delivery Method Room Air Narrative Exam Narrative: Gen.: [Alert and oriented x3 no apparent distress.] HEENT: [NCAT PERRLA tympanic membranes are clear nares are patent oral mucosa is moist no tonsillar hypertrophy neck is supple without lymphadenopathy no thyroid enlargement.] Cardio: [S1-S2 regular rate and rhythm no murmurs appreciated.] Respiratory: [Lungs are clear to auscultation no wheezes or crackles normal respiratory effort.] Abdomen: [Soft nontender no rebound or guarding no liver spleen enlargement no appreciable hernias] Extremities: [Full range of motion no appreciable weakness no cyanosis or edema.] Neurologic: [Grossly intact.] Objective Labs 08/04/23 03:15 08/04/23 03:15 Labs: Laboratory Results - last 24 hr 08/03/23 08/03/23 08/03/23 18:26 20:31 22:23 WBC 10.6 RBC 4.79 Hgb 14.3 Hct 42.6 MCV 88.9 MCH 29.9 MCHC 33.6 RDW 16.5 H Plt Count 222 Neut % (Auto) 79.4 H Lymph % (Auto) 14.0 L [place] % (Auto) 4.8 Eos % (Auto) 0.9 L Baso % (Auto) 0.9 Neut # (Auto) 8400 H Lymph # (Auto) 1500 [place] # (Auto) 500 Eos # (Auto) 100 Baso # (Auto) 100 PT 13.2 H INR 1.2 APTT 26 D-Dimer 98701 H Sodium 137 Potassium 4.2 Chloride 102 Carbon Dioxide 31 BUN 21 H Creatinine 1.14 Estimated GFR > 60 BUN/Creatinine Ratio 18.4 Glucose 129 H Calcium 9.4 Magnesium 1.9 Total Bilirubin 0.8 AST 29 ALT 25 Alkaline Phosphatase 63 Total Creatine Kinase 65 Troponin I 0.055 H 0.053 H NT-Pro-B Natriuret Pep 5380 H Total Protein 7.2 Albumin 3.7 Globulin 3.5 Albumin/Globulin Ratio 1.1 Lipase 52 Urine Color Urine Appearance Urine pH Ur Specific [place] Urine Protein Urine Glucose (UA) Urine Ketones Urine Occult Blood Urine Nitrate Urine Bilirubin Urine Urobilinogen Ur Leukocyte Esterase Urine RBC Urine WBC Ur Squamous Epith Cells Urine Bacteria Ur Culture Indicated? Nasal Screen MRSA (PCR) Not detected 08/03/23 08/04/23 22:36 03:15 WBC 10.3 RBC 4.63 Hgb 14.0 Hct 41.5 MCV 89.7 MCH 30.1 MCHC 33.6 RDW 16.7 H Plt Count 219 Neut % (Auto) 75.3 H Lymph % (Auto) 16.6 L [place] % (Auto) 6.3 Eos % (Auto) 1.3 L Baso % (Auto) 0.5 Neut # (Auto) 7800 H Lymph # (Auto) 1700 [place] # (Auto) 700 Eos # (Auto) 100 Baso # (Auto) 100 PT INR APTT 95 H* D D-Dimer Sodium 137 Potassium 4.2 Chloride 104 Carbon Dioxide 26 BUN 20 Creatinine 1.00 Estimated GFR > 60 BUN/Creatinine Ratio 20.0 Glucose 141 H Calcium 9.0 Magnesium 1.9 Total Bilirubin 0.8 AST 25 ALT 22 Alkaline Phosphatase 63 Total Creatine Kinase Troponin I 0.052 H NT-Pro-B Natriuret Pep Total Protein 6.6 Albumin 3.4 L Globulin 3.2 Albumin/Globulin Ratio 1.1 Lipase Urine Color Yellow Urine Appearance Clear Urine pH 6.5 Ur Specific [place] 1.010 Urine Protein 1+ H Urine Glucose (UA) Negative Urine Ketones Negative Urine Occult Blood Trace-intact Urine Nitrate Negative Urine Bilirubin Negative Urine Urobilinogen 0.2 Ur Leukocyte Esterase Negative Urine RBC 0-1/hpf Urine WBC None seen Ur Squamous Epith Cells None seen Urine Bacteria None seen Ur Culture Indicated? Cult not indicated Nasal Screen MRSA (PCR) Assessment & Plan Assessment and plan (1) Atrial fibrillation with rapid ventricular response: Status: Acute (2) Left leg DVT: Qualifiers: Affected thrombotic vein of extremity: unspecified vein of extremity C hronicity: acute Qualified Code(s): I82.402 - Acute embolism and thrombosis of unspecified deep veins of left lower extremity Status: Acute (3) Pulmonary embolism and infarction: Status: Acute Assessment & Plan narrative: Pulmonary emboli patient's CT scan reported out as multiple acute PEs including right main pulmonary embolus and occlusive emboli to the right upper lobe and right middle lobe normal LV RV ratio questionable mild cardiomegaly questionable masslike consolidation versus large mass and lingual portion of the left upper lobe probable pulmonary infarction right middle lobe with bilateral pleural effusions right greater than left. patient's blood pressure has been little bit hypertensive he is not hypotensive patient is not significantly hypoxic. Patient will be admitted to the ICU and started on heparin drips per protocol. Patient will have PT and INR per protocol. He will be monitored neurologically and signs and symptoms of bleeding. He will have an echocardiogram to make sure that he did not have any signs of significant heart strain and heart failure. Pulmonary infarction. Patient's CT scan shows pulmonary infarction. No significant hemorrhage. There is mild pleural effusions. He was will be monitored with serial chest x-rays to make sure that there is not significant worsening of effusion and infiltrate. Lingula consolidation of CT on lung. This will need further evaluation workup. She has a longstanding history of smoking. Further review CT scan results. Maybe related to consolidation pneumonia. Questionable lung mass. atrial fibrillation with rapid ventricular response. Patient is in atrial fibrillation most likely due to his clot burden. He is hemodynamically stable. His heart rate still quite tachycardic. He was started on Cardizem drips. We will continue with his heart rates in 110s to 130s. Will also start him on oral metoprolol. Monitor closely his blood pressure. He is known to be hypertensive and he will be continued on his lisinopril. Chronic back pain. Patient is on narcotics for his back pain. We have given him oxycodone as needed for severe back pain. COPD. Patient with a longstanding smoking history CT scan shows lungs consistent with the COPD. He says he is not smoking anymore as of this current problem he quit few days ago. Code status patient is full code. Disposition and plan admit to ICU anticipate hospitalization for a number of days
--- NOTE | 2023-08-04 06:20 | PC.NURSE ---
0600- Patient has not rested much since admit to room 228 from Emergency. Heart rate remains AFib/RVR 115-140 Diltiazem gtt at 15ml/hr. Lactated Ringers running at 75cc/hr and Heparin is at 35.1 units/hr. PTT was therapeutic no change made to gtt and next PTT will be 12/3 AM. Patient has a prolonged I:E ratio with end expiratory wheezes. Patient expresses feeling anxious with activity and air hunger. Room air saturations 93-96%. However they drop with exertion. Medicated with Ativan per order. Patient advised to remain in bed and call for assist. Patient verbalized understanding. Will monitor closely.
--- NOTE | 2023-08-04 07:16 | DI.RAD.S_ITS ---
PROCEDURE: XR CHEST 1V INDICATIONS: effusion TECHNIQUE: One view of the chest was acquired. COMPARISON: [facility], , XR CHEST 2V, 08/03/2023, 18:11. [facility], CR, XR CHEST 2V, 04/19/2023, 19:10. FINDINGS: Surgical changes and devices: None. Lungs and pleura: Blunting of the costophrenic angles. Mediastinum: Mediastinal contours appear normal. Heart size is normal. Bones and chest wall: No suspicious bony lesions. Overlying soft tissues appear unremarkable. IMPRESSION: Blunting of the costophrenic angles, consistent with small pleural effusions. Dictated by: Reymundo Torres M.D. on 08/04/2023 at 8:09 Approved by: Reymundo Torres M.D. on 08/04/2023 at 8:10
[2023-08-04] MEDS: SODIUM CHLORIDE 0.9% FLUSH 10 ML IV (08:31)
[2023-08-04] MEDS: METOPROLOL ER 25 MG TABLET PO ×2 (08:32→14:04)
[2023-08-04] MEDS: PANTOPRAZOLE 40 MG VIAL IV (08:32)
[2023-08-04] MEDS: HYDROCODONE/ACET 5/325 TABLET 1 TAB PO (10:10)
--- NOTE | 2023-08-04 10:46 | CM.DANOTE ---
Initial DCP Assessment Note Pt is a 72 yo male, resident of [place], presents with shortness of breath and found to have multiple PEs, likely admitted for another 48-72 hours. Payer: Jonah VILLA Reviewed chart, met w/patient to introduce self and role. Patient lives in [place] w/spouse, independent in all aspects per patient's report. Patient has no hx of HH or SNF, currently denying needs from CM team. No barriers identified at this time to patient's safe discharge home w/family to assist; close outpatient f/u recommended. CM team will plan to follow closely in case any DC needs or concerns arise. ZAC Luna Discharge Planning/Care Management CM Discharge Assessment Start: 08/04/23 10:45 Freq: Status: Active Protocol: Document 08/04/23 10:46 BOO (Rec: 08/04/23 10:46 BOO [id number]) Discharge Planning Assessment Assigned Physical Medicine Specialist ZAC Gupta DPOA/Assigned Designee Name Whit Sim, spouse Contact Information [phone] Advance Directives? No History Provided By Patient Prior Living Arrangements House Household Members spouse Type of transporation used prior to Drives own vehicle admit Independent with ADL's Yes Is patient alert and oriented? Yes Barriers to Discharge No Discharge Plan Home Transportation Arrangement Family Referrals Initiated None needed Whiteboard Updated in Patient Room with Yes name and ext. # of Physical Medicine Specialist
[2023-08-04] MEDS: HEPARIN DRIP 25,000 UNIT/500 ML IV.SOLN 35.108 UNIT IV (11:09)
[2023-08-04] MEDS: LACTATED RINGERS 1,000 ML 75 ML IV (12:26)
[2023-08-04] MEDS: METOPROLOL ER 50 MG TABLET PO (20:59)
[2023-08-05] VITALS (53 sets, daily range): BP systolic 102–192; BP diastolic 79–133; PULSE 101–133; RESP 8–53; TEMP 36.1–37.1; O2SAT 74–100
[2023-08-05] MEDS: HEPARIN DRIP 25,000 UNIT/500 ML IV.SOLN 35.108 UNIT IV (01:01)
[2023-08-05] MEDS: LACTATED RINGERS 1,000 ML 75 ML IV (01:01)
[2023-08-05] MEDS: OXYCODONE IR 5 MG TABLET PO ×3 (03:06→20:51)
[2023-08-05] MEDS: LORazepam 2 MG/ML INJ 1 MG IV ×2 (03:06→20:51)
[2023-08-05 05:15] LABS: Add Manual Diff / Slide Review NO; Basophils Absolute Auto 0 /uL (0-100); Basophils Percent Auto 0.5 % (0-2); Eosinophils Absolute Auto 100 /uL (0-450); Eosinophils Percent Auto 1.3 % (2-4); Hematocrit 39.5 % (41-53); Lymphocytes Absolute Auto 1200 /uL (1100-4500); Lymphocytes Percent Auto 15.1 % (25-40); Mean Corpuscular HGB Conc 32.8 % (30-36); Mean Corpuscular Hemoglobin 29.9 PG (26-34); Mean Corpuscular Volume 91.1 fL (80-100); Monocytes Absolute Auto 700 /uL (0-900); Monocytes Percent Auto 8.5 % (3-14); Neutrophils Absolute Auto 6000 /uL (1500-7000); Neutrophils Percent Auto 74.6 % (50-75); Platelet Count 201 X10^3/uL (150-400); Red Blood Cell Count 4.34 X10^6/uL (4.5-5.9); Red Cell Distribution Width 16.4 % (11.6-14.8)
[2023-08-05 05:31] LABS: Alanine Aminotransferase 20 IU/L (<50); Albumin 3.2 g/dL (3.5-5.0); Alkaline Phosphatase 53 U/L (38-126); Aspartate Aminotransferase 21 IU/L (17-59); BUN Creatinine Ratio 19.6 (6-22); Bilirubin Total 0.7 mg/dL (0.2-1.3); Blood Urea Nitrogen 19 mg/dL (9-20); Carbon Dioxide 30 mmol/L (22-32); Chloride 103 mmol/L (98-107); Estimated Glomerular Filt Rate > 60 mL/min (>60); Globulin 3.1 g/dL (1.7-4.1); Glucose 110 mg/dL (80-110); HEMOLYSIS < 15 (0-50); Magnesium 1.9 mg/dL (1.6-2.3); Potassium 4.5 mmol/L (3.4-5.1); Sodium 135 mmol/L (137-145); Total Protein 6.3 g/dL (6.3-8.2)
[2023-08-05 05:45] LABS: PTT Partial Thromboplastin Tim 109 SECONDS (25.1-36.5)
[2023-08-05] MEDS: PANTOPRAZOLE 40 MG VIAL IV (08:54)
[2023-08-05] MEDS: METOPROLOL ER 50 MG TABLET PO ×2 (08:54→20:51)
[2023-08-05] MEDS: SODIUM CHLORIDE 0.9% FLUSH 10 ML IV (08:58)
--- NOTE | 2023-08-05 12:14 | P.PN_ITS ---
Subjective Subjective Date Patient Seen: 08/05/23 Time Patient Seen: 12:14 Interval history: Patient seen and evaluated. Doing well today. Says he slept a little bit last night. Still complaining of shortness of breath. Eating okay. Limited bowel movements. Been a little bit hypertensive. Still quite tachycardic despite Cardizem drips and oral metoprolol. Not significantly hypoxic and requiring oxygen. Good historian. Again reviewed with him his CT scan echocardiogram and recent laboratory tests. Urine output has been good. Discussed care with patient and ICU nursing staff. Exam Vital Signs (past 8 hours): - 08/05/23 05:00 08/05/23 05:00 08/05/23 06:10 Temperature Pulse Rate 101 H 101 H Respiratory Rate 11 L 11 L Blood Pressure 128/105 H Pulse Oximetry 74 L Oxygen Delivery Method 08/05/23 06:10 08/05/23 07:01 08/05/23 07:01 Temperature Pulse Rate 104 H Respiratory Rate 8 L Blood Pressure 141/110 H 140/106 H Pulse Oximetry 99 Oxygen Delivery Method 08/05/23 07:17 08/05/23 07:30 08/05/23 08:00 Temperature Pulse Rate 107 H 109 H 110 H Respiratory Rate 8 L 18 21 Blood Pressure Pulse Oximetry 88 L 98 98 Oxygen Delivery Method 08/05/23 08:30 08/05/23 08:54 08/05/23 09:00 Temperature 98.6 F Pulse Rate 122 H 125 H Respiratory Rate 26 H Blood Pressure 187/128 H Pulse Oximetry 97 Oxygen Delivery Method Room Air 08/05/23 09:55 Temperature Pulse Rate 120 H Respiratory Rate Blood Pressure 175/87 H Pulse Oximetry Oxygen Delivery Method Oxygen Delivery Method Room Air Oxygen Flow Rate 2 Narrative Exam Narrative: Gen.: Alert good historian HEENT: Pupils equal round and reactive or mucosa is moist neck is supple Cardio: S1-S2 irregular rate and rhythm Respiratory: Lungs show mild increased breathing. There is some crackles and rhonchi during the breath sounds. Abdomen: Soft nontender Extremities: Warm dry perfused Objective Labs 08/05/23 05:02 08/05/23 05:02 Labs: Laboratory Results - last 24 hr 08/05/23 05:02 WBC 8.0 RBC 4.34 L Hgb 13.0 L Hct 39.5 L MCV 91.1 MCH 29.9 MCHC 32.8 RDW 16.4 H Plt Count 201 Neut % (Auto) 74.6 Lymph % (Auto) 15.1 L [place] % (Auto) 8.5 Eos % (Auto) 1.3 L Baso % (Auto) 0.5 Neut # (Auto) 6000 Lymph # (Auto) 1200 [place] # (Auto) 700 Eos # (Auto) 100 Baso # (Auto) 0 APTT 109 H* Sodium 135 L Potassium 4.5 Chloride 103 Carbon Dioxide 30 BUN 19 Creatinine 0.97 Estimated GFR > 60 BUN/Creatinine Ratio 19.6 Glucose 110 Calcium 9.0 Magnesium 1.9 Total Bilirubin 0.7 AST 21 ALT 20 Alkaline Phosphatase 53 Total Protein 6.3 Albumin 3.2 L Globulin 3.1 Albumin/Globulin Ratio 1.0 [facility] Social History household members: spouse Smoking Status: Former smoker Assessment & Plan Assessment and plan (1) Pulmonary embolism and infarction: Status: Acute (2) Left leg DVT: Qualifiers: Affected thrombotic vein of extremity: unspecified vein of extremity C hronicity: acute Qualified Code(s): I82.402 - Acute embolism and thrombosis of unspecified deep veins of left lower extremity Status: Acute (3) Atrial fibrillation with rapid ventricular response: Status: Acute Plan Pulmonary emboli acute right main pulmonary emboli and occlusive pulmonary emboli to right upper lobe and right middle lobe pulmonary arteries. Patient has been stable on his heparin drips for approximately 48 hours. Previous tolerated Eliquis well. Patient has no signs of active bleeding. Will transition from heparin drips to oral Eliquis. As per manufacture's recommendation Eliquis will be started at the same time stopping heparin drips. Monitor closely for signs and symptoms of bleeding. Pulmonary infarction. Patient has a pulmonary infarction due to his pulmonary emboli. Some small pleural effusions on chest x-ray. These will be continued to monitor. Making sure that there is no significant worsening of underlying pleural effusions. Maintain oxygen saturations greater than 90% Lingular mass left upper lobe This will need further evaluation workup. She has a longstanding history of smoking. Further review CT scan results. Maybe related to consolidation pneumonia. Questionable lung mass. Atrial fibrillation most likely due to underlying pulmonary emboli been fairly difficult to get appropriate heart rate control. Despite being on oral metoprolol and IV Cardizem drips. Will go ahead and stop Cardizem drip provided loading dose of amiodarone per protocol. Will continue with oral metoprolol. Monitor closely blood pressure may need additional antihypertensives. Echocardiogram was reviewed which shows decreased left ventricular systolic function at 30-35% atrial dilation with no significant valvular heart disease. Systolic congestive heart failure acute. Patient has echocardiogram with reduced ejection fraction. Continue with beta-oliver. On lung exam today he has some fine crackles. Will provide a dose of Lasix as he has been getting IV fluids here. I think he maybe a little bit up on his fluids. Will see if this will help. Chronic back pain. Provide pain medication as needed. COPD. Patient with a longstanding smoking history CT scan shows lungs consistent with the COPD. Respiratory therapy for evaluation and treatment. For recommendations on inhaler. Smoking. Patient has now quit smoking as of today. Says he will continue use lozenges and patches at home. Counseling provided. Code status patient is full code. Continue ICU status. Anticipate further hospitalization until stabilization of blood clot and heart rate.
[2023-08-05] MEDS: FUROSEMIDE 40 MG/4 ML VIAL IV (12:46)
[2023-08-05] MEDS: AMIODARONE 150 MG/100 ML PIGGYBACK 600 MG IV (12:46)
[2023-08-05] MEDS: AMIODARONE 360 MG/200 ML PIGGYBACK 33.3 MG IV (12:47)
[2023-08-05] MEDS: DOCUSATE 100 MG CAPSULE PO (13:12)
[2023-08-05] MEDS: SENNOSIDES 8.6 MG TABLET PO ×2 (13:12→20:54)
[2023-08-05] MEDS: APIXABAN 5 MG TABLET 10 MG PO ×2 (13:45→20:52)
[2023-08-05] MEDS: ALBUTEROL 2.5 MG/3 ML NEB (ADULT) INH (17:20)
[2023-08-05] MEDS: AMIODARONE 360 MG/200 ML PIGGYBACK 16.7 MG IV (18:21)
[2023-08-05] MEDS: HYDROCODONE/ACET 5/325 TABLET 1 TAB PO (18:43)
[2023-08-05] MEDS: ALBUTEROL/IPRATROPIUM 3 ML AMPUL INH (20:04)
[2023-08-06] VITALS (49 sets, daily range): BP systolic 133–168; BP diastolic 82–119; PULSE 111–141; RESP 10–47; TEMP 36.1–36.6; O2SAT 93–99
[2023-08-06 05:30] LABS: Add Manual Diff / Slide Review NO; Basophils Absolute Auto 0 /uL (0-100); Basophils Percent Auto 0.5 % (0-2); Eosinophils Absolute Auto 100 /uL (0-450); Eosinophils Percent Auto 0.8 % (2-4); Hematocrit 43.5 % (41-53); Hemoglobin 14.3 g/dL (13.5-17.5); Lymphocytes Absolute Auto 1500 /uL (1100-4500); Lymphocytes Percent Auto 18.1 % (25-40); Mean Corpuscular HGB Conc 32.8 % (30-36); Mean Corpuscular Hemoglobin 29.4 PG (26-34); Mean Corpuscular Volume 89.6 fL (80-100); Monocytes Absolute Auto 500 /uL (0-900); Monocytes Percent Auto 5.5 % (3-14); Neutrophils Absolute Auto 6400 /uL (1500-7000); Neutrophils Percent Auto 75.1 % (50-75); Platelet Count 235 X10^3/uL (150-400); Red Blood Cell Count 4.85 X10^6/uL (4.5-5.9); Red Cell Distribution Width 16.2 % (11.6-14.8); White Blood Cell Count 8.5 X10^3/uL (4.5-11.0)
[2023-08-06 05:33] LABS: INR 1.5 (0.9-1.3); Prothrombin Time 17.6 SECONDS (9.4-12.5)
[2023-08-06 05:41] LABS: Alanine Aminotransferase 22 IU/L (<50); Albumin 3.9 g/dL (3.5-5.0); Albumin Globulin Ratio 1.1 (1.0-2.8); Alkaline Phosphatase 59 U/L (38-126); Aspartate Aminotransferase 25 IU/L (17-59); BUN Creatinine Ratio 20.2 (6-22); Bilirubin Total 0.6 mg/dL (0.2-1.3); Blood Urea Nitrogen 25 mg/dL (9-20); Calcium 9.5 mg/dL (8.4-10.2); Carbon Dioxide 30 mmol/L (22-32); Chloride 98 mmol/L (98-107); Estimated Glomerular Filt Rate > 60 mL/min (>60); Globulin 3.5 g/dL (1.7-4.1); Glucose 113 mg/dL (80-110); HEMOLYSIS < 15 (0-50); Magnesium 1.8 mg/dL (1.6-2.3); Potassium 4.2 mmol/L (3.4-5.1); Sodium 136 mmol/L (137-145); Total Protein 7.4 g/dL (6.3-8.2)
[2023-08-06] MEDS: PANTOPRAZOLE DR 40 MG TABLET PO (05:48)
[2023-08-06] MEDS: AMIODARONE 360 MG/200 ML PIGGYBACK 16.7 MG IV ×2 (05:49→16:55)
[2023-08-06] MEDS: OXYCODONE IR 5 MG TABLET PO ×2 (05:57→20:12)
[2023-08-06] MEDS: METOPROLOL ER 50 MG TABLET PO (08:04)
[2023-08-06] MEDS: ALBUTEROL/IPRATROPIUM 3 ML AMPUL INH ×3 (08:15→19:10)
[2023-08-06] MEDS: APIXABAN 5 MG TABLET 10 MG PO ×2 (08:52→20:13)
[2023-08-06] MEDS: lisinopriL 20 MG TABLET PO (09:20)
--- NOTE | 2023-08-06 12:57 | PM.PN.1 ---
Subjective Subjective Date Patient Seen: 08/06/23 Time Patient Seen: 12:58 Interval history: Very pleasant 72-year-old male who is under the primary care of Dr. Stevenson, who was hospitalized for left lower extremity DVT with pulmonary embolus and atrial fibrillation with rapid ventricular rate. This is a new patient to me and seen in [facility]. Patient's previous history is remarkable for hypertension and chronic pain. Patient has a history of smoking and is still smoking. Patient has a previous history of DVT was treated with Eliquis I believe this was in 2018 and was stopped after adequate treatment. Patient presented to the ER with acute shortness of breath and was found to have above. Patient received IV Lasix yesterday and had good diuresis 2.3 L. patient is on Eliquis. Still difficulty controlling patient's blood pressure and heart rate Reviewed CT angiogram, chest x-ray, echo which shows significant suppressed ejection fraction at 35% and no evidence of right heart strain or pulmonary hypertension Patient continue stable off oxygen but does require oxygen at night Patient has had a 1 month or greater progressive worsening and shortness of breath. Looked up on the Internet how to treat dyspnea on exertion and worked on breathing techniques took his oxycodone and used Primatene mist before seeking emergency medical care. No chest pain or palpitations or lightheadedness or dizziness No cough or fever Smokes 15 cigarettes a day prior to coming in but agrees he will quit smoking 12 point review of systems is otherwise negative Exam Vital Signs (past 8 hours): - 08/06/23 05:00 08/06/23 05:00 08/06/23 05:10 Temperature Pulse Rate 128 H 130 H Respiratory Rate 16 16 Blood Pressure 138/94 H Pulse Oximetry 97 97 Oxygen Delivery Method [facility] 08/06/23 08:00 08/06/23 08:04 08/06/23 08:15 Temperature 97.5 F L Pulse Rate 122 H 111 H Respiratory Rate 12 Blood Pressure 168/112 H Pulse Oximetry 94 Oxygen Delivery Method Room Air 08/06/23 09:00 08/06/23 09:05 08/06/23 09:20 Temperature Pulse Rate 131 H 131 H Respiratory Rate Blood Pressure 157/108 H 157/108 H Pulse Oximetry Oxygen Delivery Method Room Air 08/06/23 10:00 08/06/23 10:00 08/06/23 10:30 Temperature Pulse Rate 129 H 137 H Respiratory Rate 24 18 Blood Pressure 133/93 H Pulse Oximetry 94 94 Oxygen Delivery Method 08/06/23 11:00 08/06/23 11:01 08/06/23 11:01 Temperature Pulse Rate 133 H 141 H Respiratory Rate 24 24 Blood Pressure 145/105 H Pulse Oximetry 96 96 Oxygen Delivery Method 08/06/23 11:30 08/06/23 11:39 08/06/23 11:43 Temperature 97.3 F L Pulse Rate 117 H 116 H Respiratory Rate 10 L 16 Blood Pressure Pulse Oximetry 93 96 Oxygen Delivery Method Room Air 08/06/23 12:00 08/06/23 12:00 Temperature Pulse Rate 117 H Respiratory Rate 22 Blood Pressure 133/82 Pulse Oximetry 94 Oxygen Delivery Method Fraction of Inspired Oxygen 21 SaO2/FiO2 Ratio 452 Oxygen Delivery Method Room Air Oxygen Flow Rate 2 Narrative Exam Narrative: Afebrile vital signs are stable except for blood pressure has been in the 160s over 110s. Patient was started on his lisinopril that he takes as an outpatient and blood pressure currently 133/82. Patient's O2 sat on room air is 94-96%. Heart rate is in the low 1 teens to 120s goes up with movement. HEENT is unremarkable Neck is supple without adenopathy or jugular venous distention. Chest: Bibasilar crackles with scattered rhonchi but no increased work of breathing. Scattered wheezes bilaterally Cor irregularly irregular rhythm with distant S1-S2 at a rate in the 1 teens Abdomen: Positive bowel sounds, soft, nontender, nondistended Extremities: Patient with left lower extremity edema from the knee down related to DVT. No significant edema in the right lower extremity Neurologic exam is nonfocal Objective Labs 08/06/23 04:24 08/06/23 04:24 Labs: Laboratory Results - last 24 hr 08/06/23 04:24 WBC 8.5 RBC 4.85 Hgb 14.3 Hct 43.5 MCV 89.6 MCH 29.4 MCHC 32.8 RDW 16.2 H Plt Count 235 Neut % (Auto) 75.1 H Lymph % (Auto) 18.1 L [place] % (Auto) 5.5 Eos % (Auto) 0.8 L Baso % (Auto) 0.5 Neut # (Auto) 6400 Lymph # (Auto) 1500 [place] # (Auto) 500 Eos # (Auto) 100 Baso # (Auto) 0 PT 17.6 H INR 1.5 H Sodium 136 L Potassium 4.2 Chloride 98 Carbon Dioxide 30 BUN 25 H Creatinine 1.24 Estimated GFR > 60 BUN/Creatinine Ratio 20.2 Glucose 113 H Calcium 9.5 Magnesium 1.8 Total Bilirubin 0.6 AST 25 ALT 22 Alkaline Phosphatase 59 Total Protein 7.4 Albumin 3.9 Globulin 3.5 Albumin/Globulin Ratio 1.1 [facility] Social History household members: spouse Smoking Status: Former smoker Assessment & Plan Assessment & Plan narrative: Assessment and plan (1) Pulmonary embolism and infarction: Status: Acute (2) Left leg DVT: Qualifiers: Affected thrombotic vein of extremity: unspecified vein of extremity Chronicity: acute Qualified Code(s): I82.402 - Acute embolism and thrombosis of unspecified deep veins of left lower extremity Status: Acute (3) Atrial fibrillation with rapid ventricular response: Status: Acute Plan Pulmonary emboli acute right main pulmonary emboli and occlusive pulmonary emboli to right upper lobe and right middle lobe pulmonary arteries. Patient was treated with IV heparin and then transitioned over to Eliquis. Patient shows no evidence of decompensation or evidence of bleeding. He will be continued on Eliquis indefinitely. Somewhat strange that he does not have right heart strain or pulmonary hypertension on echo. Pulmonary infarction. Patient has a pulmonary infarction due to his pulmonary emboli. Some small pleural effusions on chest x-ray. These will be continued to monitor. Making sure that there is no significant worsening of underlying pleural effusions. Maintain oxygen saturations greater than 90% Lingular mass left upper lobe This will need further evaluation workup. he has a longstanding history of smoking. Further review CT scan results. Maybe related to consolidation pneumonia. Questionable lung mass. Will need to follow closely as outpatient Atrial fibrillation most likely due to underlying pulmonary emboli been fairly difficult to get appropriate heart rate control. Despite being on oral metoprolol and IV Cardizem drips. Cardizem was discontinued and patient is currently on metoprolol oral extended-release 50 mg twice daily. He is also on amiodarone drip and we will continue for another 24 hours and then will start oral amiodarone prior to stopping the drip. Will increase metoprolol to 100 mg twice daily to help with rate control and will start outpatient lisinopril to help with blood pressure. Echocardiogram was reviewed which shows decreased left ventricular systolic function at 30-35% atrial dilation with no significant valvular heart disease. Systolic congestive heart failure acute. Patient has echocardiogram with reduced ejection fraction. Continue with beta-oliver. Paste patient had good response to Lasix. We will continue to monitor. Will start lisinopril 20 mg daily. Chronic back pain. Provide pain medication as needed. COPD. Patient with a longstanding smoking history CT scan shows lungs consistent with the COPD. Respiratory therapy for evaluation and treatment. For recommendations on inhaler. Smoking. Patient has now quit smoking as of today. Says he will continue use lozenges and patches at home. Counseling provided. Code status patient is full code. Continue ICU status. Anticipate further hospitalization until stabilization of blood clot and heart rate. 60 minutes spent with patient in reviewing chart, discussing with physician, discussing with nursing, meeting with patient in his family formulating a plan and documentation
[2023-08-06] MEDS: METOPROLOL ER 50 MG TABLET 100 MG PO ×2 (13:20→20:13)
--- NOTE | 2023-08-06 13:21 | DI.RAD.S_ITS ---
PROCEDURE: XR CHEST 1V INDICATIONS: hypoxemia TECHNIQUE: One view of the chest was acquired. COMPARISON: [facility], CT, CT ANGIO CHEST PE PROTOCOL, 08/03/2023, 19:27. [facility], CR, XR CHEST 1V, 08/04/2023, 8:44. FINDINGS: Surgical changes and devices: None. Lungs and pleura: Mild diffuse interstitial prominence. Trace bilateral pleural effusion. Lingular and middle lobe patchy consolidation. No new lung abnormality. Mediastinum: Mediastinal contours appear normal. Heart size is normal. Bones and chest wall: No suspicious bony lesions. Overlying soft tissues appear unremarkable. IMPRESSION: 1. Mild pulmonary edema and trace bilateral pleural effusions. 2. Lingular and middle lobe patchy consolidations persist suggestive of infection and/or malignancy, better seen on CT dated August 03, 2023. No new lung abnormality. Dictated by: Alexander Alcocer M.D. on 08/06/2023 at 16:17 Approved by: Alexander Alcocer M.D. on 08/06/2023 at 16:20
[2023-08-06] MEDS: DOCUSATE 100 MG CAPSULE PO (14:44)
[2023-08-06] MEDS: SENNOSIDES 8.6 MG TABLET PO (14:44)
--- NOTE | 2023-08-06 16:58 | CM.DPNOTE ---
DCP Note TRUCK JUMPER reviewed EMR. unable to meet with today due to triaging needs. Plan remains home with spouse when medically stable. No CM needs identified at this time,. Per RN, patient finishing drip today. ZAC Navarro
[2023-08-07] VITALS (44 sets, daily range): BP systolic 104–143; BP diastolic 70–109; PULSE 96–134; RESP 12–38; TEMP 36.6–36.8; O2SAT 88–100
[2023-08-07] MEDS: AMIODARONE 360 MG/200 ML PIGGYBACK 16.7 MG IV (04:21)
[2023-08-07] MEDS: OXYCODONE IR 5 MG TABLET PO ×3 (04:46→21:04)
[2023-08-07] MEDS: ALBUTEROL 2.5 MG/3 ML NEB (ADULT) INH (04:50)
[2023-08-07 05:13] LABS: Add Manual Diff / Slide Review NO; Basophils Absolute Auto 100 /uL (0-100); Basophils Percent Auto 1.5 % (0-2); Eosinophils Absolute Auto 100 /uL (0-450); Hematocrit 42.3 % (41-53); Hemoglobin 13.7 g/dL (13.5-17.5); Lymphocytes Absolute Auto 1400 /uL (1100-4500); Lymphocytes Percent Auto 16.8 % (25-40); Mean Corpuscular HGB Conc 32.5 % (30-36); Mean Corpuscular Hemoglobin 29.1 PG (26-34); Mean Corpuscular Volume 89.8 fL (80-100); Monocytes Absolute Auto 600 /uL (0-900); Monocytes Percent Auto 7.6 % (3-14); Neutrophils Absolute Auto 6200 /uL (1500-7000); Neutrophils Percent Auto 73.1 % (50-75); Platelet Count 238 X10^3/uL (150-400); Red Blood Cell Count 4.71 X10^6/uL (4.5-5.9); Red Cell Distribution Width 16.3 % (11.6-14.8); White Blood Cell Count 8.5 X10^3/uL (4.5-11.0)
[2023-08-07 05:28] LABS: Cholesterol 172 mg/dL (140-199); HDL Cholesterol 50 mg/dL (40-60); LDL Cholesterol Calculated 105 mg/dL (<100); Triglycerides 86 mg/dL (35-150)
[2023-08-07 05:29] LABS: Alanine Aminotransferase 22 IU/L (<50); Albumin 3.5 g/dL (3.5-5.0); Albumin Globulin Ratio 1.1 (1.0-2.8); Alkaline Phosphatase 56 U/L (38-126); Aspartate Aminotransferase 30 IU/L (17-59); BUN Creatinine Ratio 22.6 (6-22); Bilirubin Total 0.5 mg/dL (0.2-1.3); Blood Urea Nitrogen 28 mg/dL (9-20); Calcium 9.2 mg/dL (8.4-10.2); Carbon Dioxide 31 mmol/L (22-32); Chloride 102 mmol/L (98-107); Estimated Glomerular Filt Rate > 60 mL/min (>60); Globulin 3.3 g/dL (1.7-4.1); Glucose 92 mg/dL (80-110); HEMOLYSIS < 15 (0-50); Potassium 4.4 mmol/L (3.4-5.1); Sodium 138 mmol/L (137-145); Total Protein 6.8 g/dL (6.3-8.2)
[2023-08-07] MEDS: PANTOPRAZOLE DR 40 MG TABLET PO (06:07)
--- NOTE | 2023-08-07 06:35 | PC.NURSE ---
Referral Manager Note-Patient was awake most of the night, no distress, very talkative. A-fib RVR continues, mostly 120s, BP has decreased 120s/90-100 this am. Amiodarone gtt infusing at 16.7mg/hr, also receiving PO metoprolol. 3 formed brown BMs with small les blood, patient states he has hemorrhoids and feels better Exp rhonchi/wheeze R>L, SpO2 > 94%, uses 2L NC while asleep.
[2023-08-07] MEDS: ALBUTEROL/IPRATROPIUM 3 ML AMPUL INH ×3 (07:08→18:24)
--- NOTE | 2023-08-07 08:38 | P.PN_ITS ---
Subjective Subjective Date Patient Seen: 08/07/23 Time Patient Seen: 08:39 Interval history: Patient with unremarkable night. Still with a heart rate in the 120s. But no chest pain or shortness of breath. Twelve point review of systems is otherwise negative Exam Vital Signs (past 8 hours): - 08/07/23 01:00 08/07/23 01:00 08/07/23 01:28 Temperature Pulse Rate 119 H 121 H Respiratory Rate 15 26 H Blood Pressure 119/91 H Pulse Oximetry 97 96 Oxygen Delivery Method Oxygen Flow Rate Fraction of Inspired Oxygen 08/07/23 02:00 08/07/23 02:00 08/07/23 02:08 Temperature Pulse Rate 117 H 122 H Respiratory Rate 17 28 H Blood Pressure 119/77 Pulse Oximetry 98 97 Oxygen Delivery Method Oxygen Flow Rate Fraction of Inspired Oxygen 08/07/23 03:01 08/07/23 03:01 08/07/23 03:07 Temperature Pulse Rate 119 H 119 H Respiratory Rate 23 16 Blood Pressure 130/93 H Pulse Oximetry 97 98 Oxygen Delivery Method Oxygen Flow Rate Fraction of Inspired Oxygen 08/07/23 04:04 08/07/23 04:04 08/07/23 04:45 Temperature 97.8 F Pulse Rate 118 H Respiratory Rate 28 H Blood Pressure 124/91 H Pulse Oximetry 95 Oxygen Delivery Method Nasal Cannula Oxygen Flow Rate Fraction of Inspired Oxygen 08/07/23 05:01 08/07/23 05:01 08/07/23 06:04 Temperature Pulse Rate 122 H 127 H Respiratory Rate 25 H 25 H Blood Pressure 125/109 H Pulse Oximetry 98 98 Oxygen Delivery Method Oxygen Flow Rate Fraction of Inspired Oxygen 08/07/23 06:04 08/07/23 06:14 08/07/23 06:30 Temperature Pulse Rate 123 H 120 H Respiratory Rate 17 32 H Blood Pressure 126/102 H Pulse Oximetry 97 93 Oxygen Delivery Method Oxygen Flow Rate Fraction of Inspired Oxygen 08/07/23 07:00 08/07/23 07:01 08/07/23 07:01 Temperature Pulse Rate 115 H 117 H Respiratory Rate 13 18 Blood Pressure 131/99 H Pulse Oximetry 96 94 Oxygen Delivery Method Oxygen Flow Rate Fraction of Inspired Oxygen 08/07/23 07:08 08/07/23 07:30 Temperature Pulse Rate 128 H 129 H Respiratory Rate 16 28 H Blood Pressure Pulse Oximetry 98 98 Oxygen Delivery Method Room Air Oxygen Flow Rate 0 Fraction of Inspired Oxygen 21 Fraction of Inspired Oxygen 21 SaO2/FiO2 Ratio 466 Oxygen Delivery Method Room Air Oxygen Flow Rate 0 Narrative Exam Narrative: Alert and oriented x3 in no apparent distress HEENT unchanged. No jugular venous distention or bruits Chest: Scattered expiratory wheezes but no increased work of breathing Cor: Irregularly irregular rhythm Abdomen: Positive bowel sounds, soft, nontender, nondistended Left lower extremity still with swelling unchanged Objective Labs 08/07/23 04:58 08/07/23 04:58 Labs: Laboratory Results - last 24 hr 08/07/23 04:58 WBC 8.5 RBC 4.71 Hgb 13.7 Hct 42.3 MCV 89.8 MCH 29.1 MCHC 32.5 RDW 16.3 H Plt Count 238 Neut % (Auto) 73.1 Lymph % (Auto) 16.8 L [place] % (Auto) 7.6 Eos % (Auto) 1.0 L Baso % (Auto) 1.5 Neut # (Auto) 6200 Lymph # (Auto) 1400 [place] # (Auto) 600 Eos # (Auto) 100 Baso # (Auto) 100 Sodium 138 Potassium 4.4 Chloride 102 Carbon Dioxide 31 BUN 28 H Creatinine 1.24 Estimated GFR > 60 BUN/Creatinine Ratio 22.6 H Glucose 92 Calcium 9.2 Total Bilirubin 0.5 AST 30 ALT 22 Alkaline Phosphatase 56 Total Protein 6.8 Albumin 3.5 Globulin 3.3 Albumin/Globulin Ratio 1.1 Triglycerides 86 Cholesterol 172 LDL Cholesterol, Calc 105 H HDL Cholesterol 50 PFSH Social History household members: spouse Smoking Status: Former smoker Assessment & Plan Assessment & Plan narrative: Assessment and plan (1) Pulmonary embolism and infarction: Status: Acute (2) Left leg DVT: Qualifiers: Affected thrombotic vein of extremity: unspecified vein of extremity C hronicity: acute Qualified Code(s): I82.402 - Acute embolism and thrombosis of unspecified deep veins of left lower extremity Status: Acute (3) Atrial fibrillation with rapid ventricular response: Status: Acute Plan Pulmonary emboli acute right main pulmonary emboli and occlusive pulmonary emboli to right upper lobe and right middle lobe pulmonary arteries. Patient was treated with IV heparin and then transitioned over to Eliquis. Patient shows no evidence of decompensation or evidence of bleeding. He will be continued on Eliquis indefinitely. Somewhat strange that he does not have right heart strain or pulmonary hypertension on echo. Left lower extremity DVT: Continue on same Eliquis Pulmonary infarction. Patient has a pulmonary infarction due to his pulmonary emboli. Some small pleural effusions on chest x-ray. These will be continued to monitor. Making sure that there is no significant worsening of underlying pleural effusions. Maintain oxygen saturations greater than 90% Lingular mass left upper lobe This will need further evaluation workup. he has a longstanding history of smoking. Further review CT scan results. Maybe related to consolidation pneumonia. Questionable lung mass. Will need to follow closely as outpatient. No evidence of infection at this time. Normal white blood cell count and stable on room air and no fever Atrial fibrillation most likely due to underlying pulmonary emboli been fairly difficult to get appropriate heart rate control. Despite being on oral metoprolol and IV Cardizem drips. Cardizem was discontinued and patient is currently on metoprolol oral extended-release 50 mg twice daily. Discuss with Cardiology, Dr. Posadas well. Yesterday increase metoprolol from 50 mg b.i.d. to 100 mg b.i.d. succinate. Will continue 100 mg in a.m. and 100 mg in the evening. Will add 50 mg at noon today and tomorrow will change to 100 mg t.i.d.. We will stop IV amiodarone and will start amiodarone 400 mg twice daily for a week and then do 200 mg twice daily for a week and then 200 mg daily. I think it will be difficult to get his heart rate under control until his PE is treated. This is also complicated by the fact that he has congestive heart failure and we will treat that as well. We will continue his lisinopril and add spironolactone and give Lasix as needed. Echocardiogram was reviewed which shows decreased left ventricular systolic function at 30-35% atrial dilation with no significant valvular heart disease. Systolic congestive heart failure acute. Patient has echocardiogram with reduced ejection fraction. Continue with beta-oliver. Paste patient had good response to Lasix. We will continue to monitor. Will start lisinopril 20 mg daily. Will add spironolactone 12.5 mg daily Chronic back pain. Provide pain medication as needed. COPD. Patient with a longstanding smoking history CT scan shows lungs consistent with the COPD. Respiratory therapy for evaluation and treatment. For recommendations on inhaler. Smoking. Patient has now quit smoking as of today. Says he will continue use lozenges and patches at home. Counseling provided. Code status patient is full code. Continue ICU status. Anticipate further hospitalization until stabilization of blood clot and heart rate. 55 minutes spent with patient in reviewing chart, discussing with physician, discussing with nursing, meeting with patient in his family formulating a plan and documentation
[2023-08-07] MEDS: METOPROLOL ER 50 MG TABLET 100 MG PO ×2 (09:16→20:24)
[2023-08-07] MEDS: lisinopriL 20 MG TABLET PO (09:16)
[2023-08-07] MEDS: SPIRONOLACTONE 25 MG TABLET 12.5 MG PO (09:16)
[2023-08-07] MEDS: APIXABAN 5 MG TABLET 10 MG PO ×2 (09:16→20:24)
[2023-08-07] MEDS: FUROSEMIDE 40 MG/4 ML VIAL IV (09:17)
--- NOTE | 2023-08-07 10:40 | PC.NURSE ---
Addendum entered by Noemi Samuel R.N. 08/07/23 15:46: Spoke with provider regarding pt's HR, which has remained 100s up to 130s after stopping Amiodarone gtt. Also spoke with provider to ensure provider had discussed previous CT results with patient. Addendum entered by Noemi Samuel R.N. 08/07/23 14:43: Attempted to contact provider regarding pt's HR, which has maintained > 100 after stopping Amiodarone gtt. Addendum entered by Noemi Samuel R.N. 08/07/23 12:30: Around 1100, RN received telephone read-back orders for one time dose of Amiodarone PO at 12pm and to stop infusion at 1pm. RN also received read-back orders clarifying metoprolol to give 50mg one time dose at 12pm. Original Note: Called provider's office to clarify metoprolol and amiodarone orders based on MAR. Waiting for return call.
[2023-08-07] MEDS: AMIODARONE 200 MG TABLET 400 MG PO ×2 (11:54→17:17)
[2023-08-07] MEDS: METOPROLOL ER 50 MG TABLET PO (11:55)
--- NOTE | 2023-08-07 14:25 | CM.DPNOTE ---
DCP Note CIGARETTE ROLLER reviewed EMR. Per provider note, patient here until HR and clot controlled. CIGARETTE ROLLER entered room and introduced self and role. Patient accompanied by dtr and spouse at bedside. Patient interested in cheaper alternatives to life alert. CIGARETTE ROLLER provided patient with information to [facility]. Patient appreciative. Patient had questions about portal access. CIGARETTE ROLLER gave him phone number for medical records. Patient appreciative. Plan: home with spouse when medically stable. Spouse to transport. No additional needs from CM team at this time. CM team will continue to follow as needed. ZAC Navarro
[2023-08-07] MEDS: LORazepam 2 MG/ML INJ 1 MG IV (21:24)
[2023-08-08] VITALS (12 sets, daily range): BP systolic 107–132; BP diastolic 77–94; PULSE 70–138; RESP 18–23; TEMP 36.4–37.1; O2SAT 96–98
[2023-08-08 05:33] LABS: Add Manual Diff / Slide Review NO; Basophils Absolute Auto 0 /uL (0-100); Basophils Percent Auto 0.6 % (0-2); Eosinophils Absolute Auto 100 /uL (0-450); Eosinophils Percent Auto 1.6 % (2-4); Hematocrit 41.7 % (41-53); Lymphocytes Absolute Auto 1400 /uL (1100-4500); Lymphocytes Percent Auto 16.7 % (25-40); Mean Corpuscular HGB Conc 33.5 % (30-36); Mean Corpuscular Hemoglobin 30.3 PG (26-34); Mean Corpuscular Volume 90.3 fL (80-100); Monocytes Absolute Auto 700 /uL (0-900); Monocytes Percent Auto 7.8 % (3-14); Neutrophils Absolute Auto 6200 /uL (1500-7000); Neutrophils Percent Auto 73.3 % (50-75); Platelet Count 227 X10^3/uL (150-400); Red Blood Cell Count 4.62 X10^6/uL (4.5-5.9); Red Cell Distribution Width 16.5 % (11.6-14.8); White Blood Cell Count 8.4 X10^3/uL (4.5-11.0)
[2023-08-08 05:42] LABS: BUN Creatinine Ratio 22.8 (6-22); Blood Urea Nitrogen 31 mg/dL (9-20); Calcium 9.4 mg/dL (8.4-10.2); Carbon Dioxide 30 mmol/L (22-32); Chloride 101 mmol/L (98-107); Estimated Glomerular Filt Rate 56 mL/min (>60); Glucose 97 mg/dL (80-110); HEMOLYSIS < 15 (0-50); Potassium 4.1 mmol/L (3.4-5.1); Sodium 137 mmol/L (137-145)
[2023-08-08 05:49] LABS: NT-proBNP (BNP-Adult 18+) 5010 pg/mL (<125)
[2023-08-08] MEDS: PANTOPRAZOLE DR 40 MG TABLET PO (06:26)
[2023-08-08] MEDS: ALBUTEROL/IPRATROPIUM 3 ML AMPUL INH ×3 (07:05→19:39)
[2023-08-08] MEDS: METOPROLOL ER 50 MG TABLET 100 MG PO ×3 (08:40→20:50)
[2023-08-08] MEDS: APIXABAN 5 MG TABLET 10 MG PO ×2 (08:40→20:50)
[2023-08-08] MEDS: OXYCODONE IR 5 MG TABLET PO ×4 (08:40→23:42)
[2023-08-08] MEDS: AMIODARONE 200 MG TABLET 400 MG PO ×2 (08:40→17:45)
[2023-08-08] MEDS: lisinopriL 20 MG TABLET PO (08:41)
[2023-08-08] MEDS: SPIRONOLACTONE 25 MG TABLET 12.5 MG PO (08:47)
[2023-08-08] MEDS: FUROSEMIDE 40 MG/4 ML VIAL IV (10:53)
--- NOTE | 2023-08-08 17:03 | PM.PN.1 ---
Subjective Subjective Interval history: chief complaint: fast heart rate, uncomfortable bed here Feeling ok today, trouble sleeping due to bed, rate still uncontrolled in the 120s he feels ok at rest but gets winded if he tries to move much. appetite ok, pain controlled. Exam Vital Signs (past 8 hours): - 08/08/23 13:50 08/08/23 13:56 Pulse Rate 117 H 120 H Respiratory Rate 18 20 Blood Pressure 107/77 Pulse Oximetry 97 97 Oxygen Delivery Method Room Air Oxygen Flow Rate 0 0 Fraction of Inspired Oxygen 21 Fraction of Inspired Oxygen 21 SaO2/FiO2 Ratio 461 Oxygen Delivery Method Room Air Oxygen Flow Rate 0 Narrative Exam Narrative: cheerful alert sitting up Const General: cooperative, healthy appearing, comfortable and well developed [facility] Head: normal to inspection, normocephalic and atraumatic Chest Chest: normal inspection of the chest Resp Auscultation: clear to auscultation bilaterally Cardio Rate: tachycardic Rhythm: abnormal rhythm Other: irregularly irregular GI Other: soft nontender nondistended Neuro Other: AAOx3, CN2-12 grossly intact Extrem Other: moving all limbs, pedal edema L>R Objective Labs 08/08/23 05:00 08/08/23 05:00 Labs: Laboratory Results - last 24 hr 08/08/23 05:00 WBC 8.4 RBC 4.62 Hgb 14.0 Hct 41.7 MCV 90.3 MCH 30.3 MCHC 33.5 RDW 16.5 H Plt Count 227 Neut % (Auto) 73.3 Lymph % (Auto) 16.7 L [place] % (Auto) 7.8 Eos % (Auto) 1.6 L Baso % (Auto) 0.6 Neut # (Auto) 6200 Lymph # (Auto) 1400 [place] # (Auto) 700 Eos # (Auto) 100 Baso # (Auto) 0 Sodium 137 Potassium 4.1 Chloride 101 Carbon Dioxide 30 BUN 31 H Creatinine 1.36 H Estimated GFR 56 L BUN/Creatinine Ratio 22.8 H Glucose 97 Calcium 9.4 NT-Pro-B Natriuret Pep 5010 H [facility] Social History household members: spouse Smoking Status: Former smoker Assessment & Plan Assessment & Plan narrative: #acute right main pulmonary emboli and occlusive pulmonary emboli to right upper lobe and right middle lobe pulmonary arteries started on IV heparin on admission now transitioned to Eliquis which he will continue. Seems to be doing ok except for continued heart rate issues. #Left lower extremity DVT Continue Eliquis #Pulmonary infarction 2/2 pulmonary emboli, with small pleural effusions on chest x-ray. Monitor, eliquis, and maintain oxygen saturations greater than 90% #Lingular mass left upper lobe This will need further evaluation workup. he has a longstanding history of smoking. Further review CT scan results. Maybe related to consolidation pneumonia. Questionable lung mass. Will need to follow closely as outpatient. No evidence of infection at this time. Normal white blood cell count and stable on room air and no fever. #Atrial fibrillation with RVR Likely incited by pulmonary emboli which are recent. Rate control remains elusive but patient remains asymptomatic at rest. Cardizem drip was discontinued and patient is currently on metoprolol oral extended-release increased to 100 TID s/o Dr. Stevens consultation. Started amiodarone 400 mg twice daily for a week will then do 200 mg twice daily for a week and then 200 mg daily. Concur heart rate will likely improve as PE is treated. Will diurese some fluid off that may help too. Echocardiogram was reviewed which shows decreased left ventricular systolic function at 30-35% atrial dilation with no significant valvular heart disease. #Systolic and diastolic congestive heart failure, acute, present on admission Patient has pedal edema bilaterally and echocardiogram with reduced ejection fraction. Continue with beta-oliver, DOMINIQUE, rachele; good response to Lasix noted. #Chronic back pain Continue home opiate regimen #COPD. Patient with a longstanding smoking history CT scan shows lungs consistent with the COPD. Appreciate RT assistance. Smoking. Patient has now quit smoking as of yesterday. Says he will continue use lozenges and patches at home. Counseling provided. Dispo: inpatient pending HR stabilization Code: full Diet: heart healthy PCP: Graham
[2023-08-09] VITALS (7 sets, daily range): BP systolic 112–149; BP diastolic 83–93; PULSE 102–128; RESP 18–20; TEMP 35.8–37; O2SAT 95–98
[2023-08-09 04:13] LABS: Add Manual Diff / Slide Review NO; Basophils Absolute Auto 100 /uL (0-100); Basophils Percent Auto 0.7 % (0-2); Eosinophils Absolute Auto 100 /uL (0-450); Eosinophils Percent Auto 1.3 % (2-4); Hematocrit 40.8 % (41-53); Hemoglobin 13.7 g/dL (13.5-17.5); Lymphocytes Absolute Auto 1400 /uL (1100-4500); Lymphocytes Percent Auto 14.3 % (25-40); Mean Corpuscular HGB Conc 33.5 % (30-36); Mean Corpuscular Hemoglobin 29.8 PG (26-34); Mean Corpuscular Volume 88.9 fL (80-100); Monocytes Absolute Auto 700 /uL (0-900); Monocytes Percent Auto 7.3 % (3-14); Neutrophils Absolute Auto 7400 /uL (1500-7000); Neutrophils Percent Auto 76.4 % (50-75); Platelet Count 227 X10^3/uL (150-400); Red Blood Cell Count 4.59 X10^6/uL (4.5-5.9); Red Cell Distribution Width 16.4 % (11.6-14.8); White Blood Cell Count 9.7 X10^3/uL (4.5-11.0)
[2023-08-09 04:36] LABS: Alanine Aminotransferase 25 IU/L (<50); Albumin 3.7 g/dL (3.5-5.0); Albumin Globulin Ratio 1.1 (1.0-2.8); Alkaline Phosphatase 59 U/L (38-126); Aspartate Aminotransferase 30 IU/L (17-59); Bilirubin Total 0.8 mg/dL (0.2-1.3); Blood Urea Nitrogen 31 mg/dL (9-20); Calcium 9.3 mg/dL (8.4-10.2); Carbon Dioxide 30 mmol/L (22-32); Chloride 98 mmol/L (98-107); Estimated Glomerular Filt Rate 53 mL/min (>60); Globulin 3.4 g/dL (1.7-4.1); Glucose 112 mg/dL (80-110); HEMOLYSIS < 15 (0-50); Potassium 4.1 mmol/L (3.4-5.1); Sodium 135 mmol/L (137-145); Total Protein 7.1 g/dL (6.3-8.2)
[2023-08-09] MEDS: OXYCODONE IR 5 MG TABLET PO (05:50)
--- NOTE | 2023-08-09 06:36 | PC.NURSE ---
pt slept in the chair this shift as he reports the bed hurts his back; he was medicated 3 times this shift w/ Oxy, the last being at 0550; he is fully dressed and ambulating in the room without difficulty
[2023-08-09] MEDS: ALBUTEROL/IPRATROPIUM 3 ML AMPUL INH (07:52)
[2023-08-09] MEDS: SPIRONOLACTONE 25 MG TABLET 12.5 MG PO (09:43)
[2023-08-09] MEDS: AMIODARONE 200 MG TABLET 400 MG PO (09:43)
[2023-08-09] MEDS: METOPROLOL ER 50 MG TABLET 100 MG PO (09:43)
[2023-08-09] MEDS: APIXABAN 5 MG TABLET 10 MG PO (09:44)
[2023-08-09] MEDS: lisinopriL 20 MG TABLET PO (09:44)
--- NOTE | 2023-08-09 12:51 | PM.DS.1 ---
History of Present Illness History of Present Illness Date Patient Seen: 08/09/23 Time Patient Seen: 12:51 Chief complaint: Left leg possible DVT, Doctor referred Narrative: Mr Sim is doing well this morning his breathing is feeling good and his heart rate has come down tot eh 100s which is actually pretty good for this visit. We discussed the medication plan with him and his family who are here today and agreed on a plan to follow up with cardiology and sleep as an outpatient. He will continue eliquis and metoprolol and amiodarone for now. Discharge Providers Provider Date of admission: 08/03/23 21:35 Discharge Date: 08/09/23 Primary care physician: Graham Discharge provider: Mu Stevenson MD Summary Hospital Course Discharge Diagnosis: #acute right main pulmonary emboli and occlusive pulmonary emboli to right upper lobe and right middle lobe pulmonary arteries #Left lower extremity DVT #Pulmonary infarction #Lingular mass left upper lobe #Atrial fibrillation with RVR #Systolic and diastolic congestive heart failure, acute, present on admission #Chronic back pain #COPD #Smoking Hospital Course: Mr. Sim's clot was addressed with anticoagulants iv heparin which was traded out for eliquis. He did have some sustained issues with tachycardic afib likely in response to the pulmonary insults which has improved with anticoagulation and with rate control efforts with amiodarone and metorpolol. By DoD his respirations were good, his leg pain was much improved, and his heart rate was down to the 100s and feeling asymptomatic. He will need to follow up with cardiology as an outpatient. While here, respiratory therapy identified a persistent sleep apnea issue which they recommend he look into as an outpatient given his evident cardiac issues. He lives on [facility] would like to see their sleep clinic down there. Status at Discharge Cognitive/behavioral status at discharge: at baseline, oriented Functional status at discharge: independent ambulation Overall status at discharge: patient is progressing back to baseline Time Spent with Patient Time spent: Greater than 30 minutes Exam Vital Signs (past 8 hours): - 08/09/23 07:55 08/09/23 08:00 08/09/23 09:43 Temperature 97.0 F L Pulse Rate 102 H 102 H Respiratory Rate 18 Blood Pressure 149/93 H 149/93 H Pulse Oximetry 95 97 Oxygen Delivery Method Room Air Oxygen Flow Rate 0 0 Fraction of Inspired Oxygen 21 08/09/23 09:44 08/09/23 10:49 Temperature Pulse Rate 102 H 106 H Respiratory Rate Blood Pressure 149/93 H Pulse Oximetry Oxygen Delivery Method Oxygen Flow Rate Fraction of Inspired Oxygen Fraction of Inspired Oxygen 21 SaO2/FiO2 Ratio 452 Oxygen Delivery Method Room Air Oxygen Flow Rate 0 Narrative Exam Narrative: alert sitting with family dressed in street clothes Resp Other: clear to auscultation bilaterally Cardio Other: rate still a bit elevated, irregular rhythm GI Other: soft nontender nondistended active bowel sounds Extrem Other: L leg swelling much improved, minimally tender calf Objective Labs 08/09/23 03:30 08/09/23 03:30 Labs: Laboratory Results - last 24 hr 08/09/23 03:30 WBC 9.7 RBC 4.59 Hgb 13.7 Hct 40.8 L MCV 88.9 MCH 29.8 MCHC 33.5 RDW 16.4 H Plt Count 227 Neut % (Auto) 76.4 H Lymph % (Auto) 14.3 L [place] % (Auto) 7.3 Eos % (Auto) 1.3 L Baso % (Auto) 0.7 Neut # (Auto) 7400 H Lymph # (Auto) 1400 [place] # (Auto) 700 Eos # (Auto) 100 Baso # (Auto) 100 Sodium 135 L Potassium 4.1 Chloride 98 Carbon Dioxide 30 BUN 31 H Creatinine 1.41 H Estimated GFR 53 L BUN/Creatinine Ratio 22.0 Glucose 112 H Calcium 9.3 Total Bilirubin 0.8 AST 30 ALT 25 Alkaline Phosphatase 59 Total Protein 7.1 Albumin 3.7 Globulin 3.4 Albumin/Globulin Ratio 1.1 [facility] Social History household members: spouse Smoking Status: Former smoker Discharge Assessment & Plan Assessment and Plan Assessment: #acute right main pulmonary emboli and occlusive pulmonary emboli to right upper lobe and right middle lobe pulmonary arteries started on IV heparin on admission now transitioned to Eliquis which he will continue. Seems to be doing ok except for continued heart rate issues. Vitals otherwise stable, satting well on room air. #Left lower extremity DVT Continue Eliquis at starting rate - 10mg bid until 08/11 then 5mg bid starting 08/12 As this is second episode and given extent of clot burden lifelong eliquis is indicated #Pulmonary infarction 2/2 pulmonary emboli, with small pleural effusions on chest x-ray. Monitor, eliquis, and maintain oxygen saturations greater than 90% #Lingular mass left upper lobe Questionable lung mass in longtime smoker. Will need to follow closely as outpatient. No evidence of infection at this time. Normal white blood cell count and stable on room air and no fever. #Atrial fibrillation with RVR Likely incited by pulmonary emboli which are new and hopefully improving with treatment. Rate control has improved and the patient remains asymptomatic at rest. Cardizem drip was discontinued and patient is currently on metoprolol oral extended-release increased to 100 TID c/o Dr. Stevens consultation. Started amiodarone 400 mg twice daily for a week will then do 200 mg twice daily for a week and then 200 mg daily as tolerated. Concur heart rate will likely improve as PE is treated. Echocardiogram was reviewed which shows decreased left ventricular systolic function at 30-35% atrial dilation with no significant valvular heart disease. #Systolic and diastolic congestive heart failure, acute, present on admission Patient has pedal edema bilaterally and echocardiogram with reduced ejection fraction. Continue with beta-oliver, ODMINIQUE, rachele; good response to Lasix noted. #Chronic back pain Continue home opiate regimen #COPD Patient with a longstanding smoking history CT scan shows lungs consistent with the COPD. Appreciate RT assistance. #Smoking Patient has now quit smoking as of two days ago. Says he will continue use lozenges and patches at home. Counseling provided. Dispo: inpatient pending HR stabilization Code: full Diet: heart healthy PCP: Graham Discharge Plan Discharge Plan Patient Disposition: Home Discharge orders & Medications Prescriptions: New Eliquis 5 mg Tablet 10 mg PO BID Qty: 60 0RF Rx Instructions: 10mg 2x/day until 08/11 then 5mg 2x/day starting 08/12 amiodarone 200 mg Tablet 400 mg PO BIDWM Qty: 90 0RF metoprolol succinate 50 mg Tablet Extended Release 24 Hr 100 mg PO TID Qty: 90 0RF Continued lisinopril 20 mg Tablet 20 mg PO DAILY oxycodone 5 mg Tablet 5 mg PO Q4H PRN (Reason: Pain (Scale Score 7-10)) Visit Report/Discharge Packet Instructions: Amiodarone (Alternative Therapy), Atrial Fibrillation, Metoprolol, Apixaban Stand Alone Forms: Patient Portal/API, Stroke Signs & Symptoms
--- NOTE | 2023-08-09 13:42 | CM.DPC ---
DCP Discharge Home Per MD, pt is medically stable to d/c home today and no identified barriers to discharge and MD confirmed with SW that no discharge needs at this time. Plan: Patient dressed and agreeable to d/c home today and thankful to be discharging home and outpt follow up. ZAC Vazquez
== END 2023-08-09 13:45 | disposition home or self-care (01) | DRG 175 ==
LOC: ED 20:58 → AC 21:35 → ICU 21:59
PROVIDERS: Family Medicine; Physician Assistant; Admitting Provider Family Medicine; Emergency Provider Emergency Medicine; Referring Provider Emergency Medicine; Visit Provider Family Medicine
DX: I26.99 Other pulmonary embolism without acute cor pulmonale (principal); I50.41 Acute combined systolic (congestive) and diastolic (congestive) heart failure; I82.412 Acute embolism and thrombosis of left femoral vein; I82.432 Acute embolism and thrombosis of left popliteal vein; I48.91 Unspecified atrial fibrillation; M54.9 Dorsalgia, unspecified; G89.29 Other chronic pain; R91.8 Other nonspecific abnormal finding of lung field; I11.0 Hypertensive heart disease with heart failure; Z87.891 Personal history of nicotine dependence
CPT/HCPCS: 36415; 71045; 71046; 71275; 80048; 80053; 80061; 81001; 82550; 83690; 83735; 83880; 84484; 85025; 85379; 85610; 85730; 87797; 93005; 93971; 94640; 94762; 96365; 96375; 96376; 99223; 99233; 99284; 99291; C8929; C9113; J0282; J1644; J1940; J2060; J7613; Q9957; Q9967

== ENCOUNTER → 2023-12-07 14:49 | Outpatient (CLI) | payer OTHER, MEDICAID, SELFPAY ==
[2023-08-04 00:54] VITALS: BMI 28.3
--- NOTE | 2023-12-07 14:51 | DI.ECHO.S_ITS ---
[facility] +---------+ : : [address] [place] : : : : [id number] : : : : Phone: [phone]+ Echocardiogram Report + + :Name: MICHAEL WEEKS Study Date: 12/07/2023 Height: 73 in : :[facility] ReadingLocation: Weight: 215 lb : : Gender: Male BSA: 2.2 m2 : :: 1950 Age: 72 yrs BP: 131/96 mmHg: :Reason For Study: CONGESTIVE HEART FAILURE : :Ordering Physician: HUBER, : :VERO Performed By: Nicanor Lim : :Referring: VERO SHAH : + + Interpretation Summary 1) Normal left ventricular size with moderately reduced systolic function (EF 35-40%). 2) Normal right ventricular size with mildly reduced function. 3) There is mild to moderate aortic regurgitation. 4) Compared to the Echo done 08/04/2023, LVEF has improved slightly from 30-35% to 35-40% on this study. Procedure: A two-dimensional transthoracic echocardiogram with color flow and Doppler was performed. The study quality was technically adequate. Comparison is made with the echocardiogram of 08/04/2023. The patient was in atrial fibrillation with heart rates between 64-95 bpm during the exam. Left Ventricle: The left ventricle is normal in size. Left ventricular wall thickness is borderline increased. The ejection fraction is estimated to be 35-40%. There is moderate global hypokinesis of the left ventricle. Diastolic parameters suggest a pseudonormalization pattern, consistent with probable elevated filling pressures. Right Ventricle: The right ventricle is normal size. Right ventricular systolic function is mildly reduced. Atria: The left atrium is moderately dilated. The right atrium is mild to moderately dilated. The interatrial septum grossly appears intact with no obvious evidence for an atrial septal defect. Mitral Valve: The mitral valve is normal in structure and function. There is no mitral valve stenosis. There is mild mitral regurgitation. Aortic Valve: The aortic valve is trileaflet. The aortic valve is mildly calcified. There is no aortic stenosis. There is mild to moderate aortic regurgitation. Tricuspid Valve: The tricuspid valve is normal in structure and function. There is no tricuspid stenosis. No tricuspid regurgitation. Pulmonic Valve: The pulmonic valve is not well visualized. There is no pulmonic valvular stenosis. There is a trace or physiologic amount of pulmonic regurgitation. Great Vessels: The aortic root is normal size. The ascending aorta is at the upper limits of normal in size. The IVC is of normal diameter and collapses greater than 50% with a sniff. This suggests a low right atrial pressure of 3 mm Hg. Pericardium/ Pleura There is no pericardial effusion. There is no pleural effusion. MMode/2D Measurements & Calculations LVIDd: 4.4 cm LVOT diam: 2.2 cm LVIDs: 3.8 cm Ao root diam: 3.9 cm FS: 13.5 % asc Aorta Diam: 4.0 cm IVSd: 1.2 cm LVPWd: 1.0 cm LV marcum. diameter/BSA (cm/m^2): 2.0 LV sys. diameter/BSA (cm/m^2): 1.7 LA A2 area: 24.4 cm2 RA long axis: 5.3 cm LA A4 area: 27.2 cm2 RA area: 22.8 cm2 LA length (vol): 5.8 cm RA vol: 83.7 ml LA vol: 96.8 ml RA : 37.7 ml/m2 LA vol index: 43.6 ml/m2 RVD1 (basal): 3.4 cm RVD2 (mid): 2.5 cm TAPSE: 1.4 cm Doppler Measurements & Calculations Ao V2 max: 138.6 cm/sec LVOT Max Salomón: 86.6 cm/sec Ao V2 mean: 98.1 cm/sec LV V1 max P.0 mmHg Ao max P.7 mmHg LV V1 VTI: 18.4 cm Ao mean P.3 mmHg LAKIA(I,D): 2.8 cm2 Ao V2 VTI: 26.2 cm LAKIA(V,D): 2.5 cm2 sev ratio: 0.70 LAKIA indexed to BSA (cm^2/m^2): 1.3 MV E max salomón: 87.5 cm/sec PA V2 max: 69.9 cm/sec MV A max salomón: 27.7 cm/sec PA V2 mean: 49.7 cm/sec MV E/A: 3.2 PA mean P.1 mmHg Med Peak E' Salomón: 6.0 cm/sec PA pr(Accel): 39.6 mmHg E/E' med: 14.6 Lat Peak E' Salomón: 8.2 cm/sec E/E' lat: 10.7 E/e' average: 12.6 MV dec time: 0.18 sec SV(LVOT): 73.0 ml Reading Physician:04:06 PM
== END ==
PROVIDERS: PCP Family Medicine; Referring Provider Internal Medicine Cardiovascular Disease; Visit Provider Internal Medicine Cardiovascular Disease
DX: I08.0 Rheumatic disorders of both mitral and aortic valves (principal); I50.22 Chronic systolic (congestive) heart failure
CPT/HCPCS: 93306

== ENCOUNTER 2024-05-19 12:30 | Outpatient (RCR) | payer OTHER, MEDICAID, SELFPAY ==
[2023-08-04 00:54] VITALS: BMI 28.3
--- OUTSIDE RECORDS SUMMARY | 2023-12-03 09:38 | XMS_ITS | Referral Summary ---
Author Name Unknown Organization [facility] Address [address] [place] [address] Care Team Providers Care Tub Chucker Name Role Phone Mu Stevenson MD Primary Care Provider [phone] Reason for Referral * Rehabilitation - Outpatient (Routine) - Authorized Specialty Diagnoses / Procedures Referred By Contcheryl t Referred To Contact Cardiac Rehabilitation Diagnoses Chronic systolic heart failure ([facility]) Vero Shah MD [address] [place] [address] [address] [place] [address] [address] Referral ID Status Reason Start Date Expiration Date V isits Requested Visits Authorized [id number] Authorized 11/19/2023 11/13/2024 1 1 Encounter Details Date Type Department Care Team Description 11/13/2023 Telephone [facility] Cardiology [address], [address] [place] [id number] Octavio Borjas MA Allergies Active Allergy Reactions Criticality Noted Date Comments Bee Venom Protein (Honey Bee) 12/28/2016 Venom-Honey Bee High 06/20/2018 Other Reaction(s): Swelling - has an Epi Pen documented as of this encounter (statuses as of 11/29/2023) Medications Medication Sig Dispensed Refills Start Date End Date Status Eliquis 5 mg tablet Take 1 tablet (5 mg total) by mouth 2 times daily 0 3 Active oxyCODONE (ROXICODONE) 5 mg immediate release tablet Take 1 tablet (5 mg total) by mouth every 4 (four) hours as needed 0 3 Active EPINEPHrine (EPIPEN) 0.3 mg/0.3 mL injection syringe Inject 1 pen injector intramuscularly single dose as needed 0 3 Active co-enzyme Q-10 30 mg capsule Take 100 mg by mouth daily 0 Active cholecalciferol , vitamin D3, (VITAMIN D3 ORAL) Take 2,000 Units by mouth daily 0 Active traZODone (DESYREL) 50 mg tablet Take 1 tablet (50 mg total) by mouth nightly 0 Active spironolactone (ALDACTONE) 25 mg tablet Take 0.5 tablets (12.5 mg total) by mouth daily 45 tablet 3 4 09/04/19 25 Active furosemide (LASIX) 20 mg tablet Take 1 tablet (20 mg total) by mouth daily 0 4 09/30/19 25 Active sacubitriL-vals wagner (Entresto) 49-51 mg tablet tablet Take 1 tablet by mouth 2 (two) times a day Start it 48 hours after stopping lisinopril 180 tablet 3 4 10/04/19 25 Active empagliflozin (JARDIANCE) 10 mg tablet tablet Take 1 tablet (10 mg total) by mouth daily 90 tablet 3 4 Active amiodarone (PACERONE) 200 mg tablet Take 1 tablet (200 mg total) by mouth daily 90 tablet 3 4 Active metoprolol succinate XL (TOPROL-XL) 200 mg 24 hr tablet Take 1 tablet (200 mg total) by mouth 2 (two) times a day 60 tablet 2 4 11/26/19 24 Discontinued documented as of this encounter (statuses as of 11/29/2023) Active Problems No known active problems documented as of this encounter (statuses as of 11/29/2023) Immunizations Name Administration Dates Next Due FLU High Dose 65+ (Fluzone) 06/20/2019, 8,05/30/2017 FLU PF 6+Mos Quad (Fluzone, FluLaval, Fluarix) 06/07/2016 Hep A, Ped/Adol, 2 Dose (Havrix, Vaqta) 08/06/20 15 Influenza, Quadrivalent 06/01/2015 Influenza, Seasonal, Injectable 06/01/2015 Live Zoster (Zostavax) 06/01/2015 Pneumococcal Polysaccharide PPV23 (Obojlpydh46) 11/12/2018 Recombinant Zoster (Shingrix) 02/26/2018, 018 Tdap (Boostrix,Adacel) 06/27/2018 documented as of this encounter Social History Tobacco Use Types Packs/Day Years Used Date Smoking Tobacco: Former Cigarettes Q uit: 08/03/2023 Smokeless Tobacco: Never Alcohol Use Standard Drinks/Week Comments Yes 0 (1 standard drink = 0.6 oz pur e alcohol) rare Sex and Gender Information Value Date Recorded Sex Assigned at Not on file Gender Identity Not on file Sexual Orientation Not on file Job Start Date Occupation Industry Not on file Not on file Not on file documented as of this encounter Miscellaneous Notes * Telephone Encounter - Nery Flores MA - 11/20/2023 5:00 PM PDT Attempted to contact [facility] to let them know of NANCY's answer. LVM. * Addendum Note - Vero Shah MD - 11/19/2023 9:30 AM PDTAddended by: VERO SHAH on: 11/19/2023 09:30 AM Modules accepted: Orders * Telephone Encounter - Vero Shah MD - 11/19/2023 9:29 AM PDT I would recommend cardiac rehab, which I just ordered. Thank you. * Telephone Encounter - Nery Flores MA - 11/19/2023 9:22 AM PDT [facility] calling to see if they have green light from Dr. Shah for pt to go through with pulmonary rehab w/o monitoring? 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 Pt would qualify for cardiac rehab Pulmonary HF referral for pt to do cardiac rehab [phone] documented in this encounter Plan of Treatment Upcoming Encounters Date Type Department Care Team Description 01/29/2024 11:20 AM PDT Office Visit [facility] [place] [address] [facility], [place] [address] Vero Shah MD [address] [place] [address] [address] [place], [place] [id number] Scheduled Referrals Name Type Priority Associated Diagnoses Order Schedule Ambulatory Referral to Cardiac Rehabilitation Outpatient Referral Routine Chronic systolic heart failure (CMS-HCC) Ordered: 11/19/2023 documented as of this encounter Visit Diagnoses Diagnosis Chronic systolic heart failure (CMS-HCC)- Primary Chronic systolic heart failure documented in this encounter Insurance Payer Benefit Plan / Group Subscriber ID Effective Dates Phone Address Type [facility] [id number] 2018-Pres ent [address] [address] [place] [address] documented as of this encounter Advance Directives Latest Code Status on File Code Status Date Activated Date Inactivated Comments Full Code 09/05/2023 1:22 PM 09/06/2023 2:36 AM Care Teams Tub Chucker Relationship Specialty Start Date End Date Mu Stevenson MD [address] [facility] [place] [address] [place] [address] PCP - General Family Medicine 10/05/23 documented as of this encounter
== END 2024-05-19 14:30 ==
LOC: CAR 12:30
PROVIDERS: PCP Family Medicine; Referring Provider Internal Medicine Cardiovascular Disease; Visit Provider Family Medicine
DX: I10 Essential (primary) hypertension (principal); I26.99 Other pulmonary embolism without acute cor pulmonale; I82.492 Acute embolism and thrombosis of other specified deep vein of left lower extremity
CPT/HCPCS: 93798

== ENCOUNTER → 2024-05-27 09:19 | Outpatient (CLI) | payer OTHER, MEDICAID, SELFPAY ==
[2023-08-04 00:54] VITALS: BMI 28.3
--- NOTE | 2024-05-27 09:20 | DI.ECHO.S_ITS ---
[facility] +---------+ [facility] : : [address] : [place] : : [id number] : : Phone: [phone] Echocardiogram Report + + :Name: MICHAEL WEEKS Study Date: 05/27/2024 Height: 72 in : :[facility] ReadingLocation: Weight: 220 lb : : Gender: Male BSA: 2.2 m2 : :: 1950 Age: 73 yrs BP: 150/85 mmHg: :Reason For Study: HEART FAILURE : :Ordering Physician: Vero : :Teetee Shah Performed By: Wandy Hamilton : :Referring: VERO SHAH : + + Interpretation Summary 1) Normal left ventricular thickness, size, wall motion, and systolic function (EF 60-65%). 2) Normal right ventricular size and function. 3) There is mild to moderate aortic regurgitation. 4) Compared to the Echo done 12/07/2023, LVEF has improved from 35-40% to 60-65% on this study. Procedure: A two-dimensional transthoracic echocardiogram with color flow and Doppler was performed. The study quality was technically adequate. Comparison is made with the echocardiogram of 12/07/2023. The patient was in sinus rhythm with heart rates between 50-58 bpm during the exam. The patient had occasional PACs during the exam. Left Ventricle: The left ventricle is normal in size and wall thickness. The ejection fraction is estimated to be 60-65%. This is improved from 35-40% compared to the previous study. Diastolic parameters suggest a relaxation abnormality of the left ventricle, consistent with probable normal filling pressures. Right Ventricle: The right ventricle is normal in size and function. Atria: Both atria are normal in size. Lipomatous hypertrophy of the interatrial septum is noted. There is no Doppler evidence for an interatrial shunt. Mitral Valve: The mitral valve leaflets are slightly calcified. There is mild mitral annular calcification. There is no mitral valve stenosis. There is trace mitral regurgitation. Aortic Valve: The aortic valve is trileaflet. The aortic valve is moderately calcified. There is mildly reduced leaflet mobility. There is mild aortic valve sclerosis. The peak aortic velocity on the previous exam was 1.4 m/sec. The peak aortic velocity is 2.0 m/sec. There is no aortic valve stenosis. There is mild to moderate aortic regurgitation. Tricuspid Valve: The tricuspid valve leaflets are thin and pliable. There is a trace or physiologic amount of tricuspid regurgitation. Pulmonary artery pressures cannot be estimated because of the lack of a measurable TR jet velocity but the IVC suggests a CVP of around 3 mmHg. Pulmonic Valve: The pulmonic valve is not well visualized. There is a trace or physiologic amount of pulmonic regurgitation. Great Vessels: The aortic root is normal size. The ascending aorta is at the upper limits of normal in size. The aortic arch could not be visualized. The pulmonary artery is not well visualized, but is probably normal size. The IVC is of normal diameter and collapses greater than 50% with a sniff. This suggests a low right atrial pressure of 3 mm Hg. Pericardium/ Pleura There is an anterior echo-free space consistent with a fat pad. There is no pericardial effusion. There is no pleural effusion. MMode/2D Measurements & Calculations LVIDd: 4.9 cm LVOT diam: 2.4 cm LVIDs: 3.5 cm Ao root diam: 3.6 cm FS: 29.1 % asc Aorta Diam: 4.1 cm EPSS: 0.84 cm IVSd: 0.97 cm LVPWd: 0.87 cm LV marcum. diameter/BSA (cm/m^2): 2.2 LV sys. diameter/BSA (cm/m^2): 1.6 LA A2 area: 24.0 cm2 RA long axis: 5.8 cm LA A4 area: 16.4 cm2 RA area: 18.3 cm2 LA length (vol): 5.4 cm RA vol: 48.8 ml LA vol: 61.6 ml RA : 22.0 ml/m2 LA vol index: 27.8 ml/m2 IVC diam: 1.3 cm RVD1 (basal): 4.4 cm TAPSE: 2.4 cm Doppler Measurements & Calculations Ao V2 max: 197.2 cm/sec LVOT Max Salomón: 101.4 cm/sec Ao V2 mean: 130.2 cm/sec LV V1 max P.1 mmHg Ao max P.5 mmHg LV V1 VTI: 25.3 cm Ao mean P.6 mmHg LAKIA(I,D): 2.6 cm2 Ao V2 VTI: 43.8 cm LAKIA(V,D): 2.3 cm2 sev ratio: 0.58 LAKIA indexed to BSA (cm^2/m^2): 1.2 AI P1/2t: 592.3 msec AI dec slope: 191.4 cm/sec2 MV E max salomón: 58.9 cm/sec PA V2 max: 87.0 cm/sec MV A max salomón: 112.3 cm/sec PA V2 mean: 54.4 cm/sec MV E/A: 0.52 PA mean P.4 mmHg Med Peak E' Salomón: 7.1 cm/sec PA pr(Accel): 45.6 mmHg E/E' med: 8.3 Lat Peak E' Salomón: 6.1 cm/sec E/E' lat: 9.7 E/e' average: 9.0 MV dec time: 0.26 sec SV(LVOT): 114.4 ml Reading Physician:03:33 PM
== END ==
PROVIDERS: PCP Family Medicine; Referring Provider Internal Medicine Cardiovascular Disease; Visit Provider Internal Medicine Cardiovascular Disease
DX: I08.0 Rheumatic disorders of both mitral and aortic valves (principal); I50.22 Chronic systolic (congestive) heart failure
CPT/HCPCS: 93306

== ENCOUNTER → 2024-07-07 09:14 | Outpatient (CLI) | payer OTHER, MEDICAID, SELFPAY ==
[2023-08-04 00:54] VITALS: BMI 28.3
--- NOTE | 2024-07-08 00:04 | DI.NM.S_ITS ---
DATE OF SERVICE: 07/07/2024 NUCLEAR CARDIOLOGY MYOCARDIAL PERFUSION STUDY PROCEDURE PERFORMED: Exercise treadmill, converted to pharmacologic vasodilators stress and rest myocardial perfusion imaging with gating to assess ejection fraction and regional wall motion. ORDERING PROVIDER: Teofilo Shah MD INDICATIONS: The patient is a 73-year-old male with history of atrial fibrillation with associated cardiomyopathy and dyspnea with history of pulmonary embolism. CARDIAC STRESS: The patient was initially stressed by treadmill and was able to exercise for 5 minutes 24 seconds on a standard James protocol but with a blunted heart rate response, achieving a maximum heart rate of only 124 BPM (84% of his predicted maximum) and therefore was converted to a pharmacologic stress by injection of 0.4 mg of regadenoson. With this, he had no chest discomfort. His resting ECG shows a probable wandering atrial pacemaker with clearly defined multiform P waves and normal ST segment. With stress, his rhythm becomes more regular with less PACs and no significant ST-segment shifts. He had rare isolated PVCs with stress but no complex ectopy. He had a mild hypertensive blood pressure response to exercise, with a peak blood pressure of 200/100. His oxygen saturation at peak exercise was 94%. Per protocol, 24.9 millicuries of technetium-99m Myoview was injected and he was imaged 15 minutes later using a gated SPECT acquisition protocol. Earlier in the day while at rest, he had been injected with 10.6 millicuries of technetium-99m Myoview was imaged 15 minutes later, again using a gated SPECT acquisition protocol. FINDINGS: 1. Raw data. There is fair myocardial tracer uptake although with some evidence for diaphragmatic attenuation. The lung/heart ratio is normal at 0.27 and the TID ratio is normal at 0.85. 2. Quantitated gated SPECT: Post stress ejection fraction is 73% without any focal wall motion abnormality, and specifically the inferior wall has normal contractility. The resting ejection fraction is 66% with a normal resting end-diastolic volume of 80 mL. 3. Myocardial perfusion imaging: Post-stress supine images show a moderate perfusion defect throughout the inferior wall, more notable in the distal half of the inferior wall, but in a pattern consistent with diaphragmatic attenuation artifact, supported by its complete resolution on the prone images, revealing a normal, homogeneous tracer pattern. The resting images show an identical perfusion pattern to that of the post-stress supine images without any areas of improvement. IMPRESSION: 1. Probable normal myocardial perfusion study. 2. Moderate, fixed inferior perfusion defect, worse distally, but likely reflecting diaphragmatic attenuation artifact given its complete resolution on the prone images. While a previous nontransmural infarction cannot be entirely excluded, the absence of any wall motion abnormality in this distribution would mitigate against this. There is no evidence for any myocardial ischemia. 3. Normal left ventricular size and systolic function without any focal wall motion abnormality. 4. Blunted chronotropic response to exercise without angina but a mild hypertensive blood pressure response. His resting ECG shows a wandering atrial pacemaker but resolution of his PACs with exercise and only rare isolated PVCs with stress. Oxygen saturation remained normal despite moderate dyspnea. Tay Sim - REE/mary ellen/CELE doc#: [id number]/job#: [id number] dd: 07/07/2024 16:47:00 dt: 07/07/2024 23:47:00 DICTATING /COPIES TO: Dipak Baires MD; Teofilo Shah MD COPIES MNE: HARPAL;
== END ==
PROVIDERS: PCP Family Medicine; Referring Provider Internal Medicine Cardiovascular Disease; Visit Provider Internal Medicine Cardiovascular Disease
DX: I50.22 Chronic systolic (congestive) heart failure (principal); I48.19 Other persistent atrial fibrillation; I42.9 Cardiomyopathy, unspecified; R06.00 Dyspnea, unspecified; Z86.711 Personal history of pulmonary embolism; Z79.01 Long term (current) use of anticoagulants
CPT/HCPCS: 78452; 93017; A9502; J2785

== ENCOUNTER → 2025-08-07 11:52 | Outpatient (CLI) | payer OTHER, MEDICAID, SELFPAY ==
[2023-08-04 00:54] VITALS: BMI 28.3
--- NOTE | 2025-08-07 11:55 | DI.RAD.S_ITS ---
PROCEDURE: XR CHEST 2V INDICATIONS: Other forms of dyspnea TECHNIQUE: 2 views of the chest were acquired. COMPARISON: [facility], CR, XR CHEST 1V, 08/06/2023, 13:22. [facility], CR, XR CHEST 1V, 08/04/2023, 8:44. FINDINGS: Surgical changes and devices: None. Lungs and pleura: Lungs are clear. No pleural effusions or pneumothorax. Lungs are hyperinflated with flattening of the diaphragms. Calcified right lower lung granuloma. Bronchial wall thickening noted. Mediastinum: The aorta and pulmonary arteries demonstrate normal size. Calcifications are noted in the thoracic arch. Bones and chest wall: No suspicious bony abnormalities. Soft tissues appear unremarkable. Multilevel degenerative disc disease noted. IMPRESSION: Bronchial wall thickening is noted. These findings are nonspecific but can be due to reactive airways disease or bronchitis. No consolidation. No acute cardiopulmonary abnormality is seen. Bronchial wall thickening likely represents image bronchitis or superimposed reactive airways disease. Dictated by: Liliya Garvin M.D. on 08/11/2025 at 12:20 Approved by: Liliya Garvin M.D. on 08/11/2025 at 12:21
== END ==
LOC: RAD 11:54
PROVIDERS: PCP Family Medicine; Referring Provider Internal Medicine Cardiovascular Disease; Visit Provider Internal Medicine Cardiovascular Disease
DX: R06.09 Other forms of dyspnea (principal)
CPT/HCPCS: 71046

== ENCOUNTER → 2025-08-18 13:05 | Outpatient (CLI) | payer OTHER, MEDICAID, SELFPAY ==
[2023-08-04 00:54] VITALS: BMI 28.3
== END ==
LOC: RESP 13:06
PROVIDERS: PCP Family Medicine; Referring Provider Internal Medicine Cardiovascular Disease; Visit Provider Internal Medicine Cardiovascular Disease
DX: R06.09 Other forms of dyspnea (principal); F17.210 Nicotine dependence, cigarettes, uncomplicated; J98.8 Other specified respiratory disorders; R94.2 Abnormal results of pulmonary function studies
CPT/HCPCS: 94060; 94726; 94729

== ENCOUNTER → 2025-08-18 14:17 | Outpatient (CLI) | payer OTHER, MEDICAID, SELFPAY ==
[2023-08-04 00:54] VITALS: BMI 28.3
--- NOTE | 2025-08-18 14:18 | DI.ECHO.S_ITS ---
[facility] : : [address] : [place] : : [id number] : : Phone: [phone] Echocardiogram Report + + :Name: MICHAEL WEEKS Study Date: 08/18/2025 Height: 71.5 in: :[facility] ReadingLocation: Weight: 233 lb : : Gender: Male BSA: 2.3 m2 : :: 1950 Age: 74 yrs BP: 159/80 mmHg: :Reason For Study: BABB : :Ordering Physician: HUBER, : :VERO Performed By: Anthony Kee : :Referring: VERO SHAH : + + Interpretation Summary 1) Normal left ventricular size, wall motion, and systolic function (EF 60- 65%). 2) Normal right ventricular size and function. 3) There is mild aortic regurgitation. 4) Compared to the Echo done 05/27/2024, no significant change. Procedure: A two-dimensional transthoracic echocardiogram with color flow and Doppler was performed. The study quality was technically adequate. Comparison is made with the echocardiogram of 05/23/2024. The heart rate ranged between 68-81 bpm during the study. Left Ventricle: The left ventricle is normal in size. Left ventricular wall thickness is mildly increased. Left ventricular systolic function is normal. The ejection fraction is estimated to be 60-65%. There are no focal wall motion abnormalities. Grade II diastolic dysfunction with elevated left atrial pressure. Right Ventricle: The right ventricle is normal in size and function. Atria: The left atrial size is normal. Right atrial size is normal. There is no Doppler evidence for an interatrial shunt. Mitral Valve: The mitral valve leaflets appear to open well. There is no mitral valve stenosis. There is no mitral regurgitation. Aortic Valve: The aortic valve is trileaflet. The aortic valve opens well. There is mild aortic valve sclerosis. There is no hemodynamically significant valvular aortic stenosis. There has been no significant change since the previous study. The calculated aortic valve area is 2.4 cm2. The peak aortic velocity is 2.1 m/sec. sev ratio: 0.60. There is mild aortic regurgitation. Tricuspid Valve: The tricuspid valve is not well visualized, but is grossly normal. There is trace tricuspid regurgitation. Pulmonary artery pressures cannot be estimated because of the lack of a measurable TR jet velocity but the IVC suggests a CVP of around 3 mmHg. Pulmonic Valve: The pulmonic valve is not well seen, but is grossly normal. There is trace pulmonic regurgitation. Great Vessels: There is aortic root sclerosis/calcification. Based on patients BSA of 2.2 m2. the aortic root in the area of the sinuses of Valsalva is with in normal range with a max diameter of 3.6 cm. This is unchanged compared to the previous study. Based on patients BSA of 2.2 m2. The proximal ascending aorta is with in normal range with a max diameter of 4.2 cm. This is unchanged compared to the previous study. The pulmonary is not well visualized. The IVC is of normal diameter and collapses greater than 50% with a sniff. This suggests a low right atrial pressure of 3 mm Hg. Pericardium/ Pleura There is no pericardial effusion. MMode/2D Measurements & Calculations LVIDd: 4.8 cm LVOT diam: 2.4 cm LVIDs: 3.0 cm Ao root diam: 3.6 cm FS: 36.4 % asc Aorta Diam: 4.2 cm IVSd: 1.1 cm LVPWd: 1.1 cm LV marcum. diameter/BSA (cm/m^2): 2.1 LV sys. diameter/BSA (cm/m^2): 1.3 LA A2 area: 20.1 cm2 IVC diam: 0.83 cm LA A4 area: 19.4 cm2 LA length (vol): 6.1 cm LA vol: 54.7 ml LA vol index: 24.2 ml/m2 RVD1 (basal): 3.0 cm RVD2 (mid): 2.6 cm TAPSE: 2.2 cm Doppler Measurements & Calculations Ao V2 max: 207.2 cm/sec LVOT Max [place]: 109.9 cm/sec Ao V2 mean: 143.4 cm/sec LV V1 max P.8 mmHg Ao max P.2 mmHg LV V1 VTI: 22.1 cm Ao mean P.2 mmHg LAKIA(I,D): 2.7 cm2 Ao V2 VTI: 36.8 cm LAKIA(V,D): 2.4 cm2 sev ratio: 0.60 LAKIA indexed to BSA (cm^2/m^2): 1.2 AI P1/2t: 516.5 msec AI dec slope: 227.7 cm/sec2 MV E max salomón: 96.9 cm/sec PA V2 max: 89.9 cm/sec MV A max salomón: 63.3 cm/sec PA V2 mean: 60.9 cm/sec MV E/A: 1.5 PA mean P.7 mmHg Med Peak E' [place]: 6.1 cm/sec PA pr(Accel): 32.8 mmHg E/E' med: 16.0 Lat Peak E' [place]: 7.6 cm/sec E/E' lat: 12.7 E/e' average: 14.4 MV dec time: 0.21 sec SV(LVOT): 99.4 ml Reading Physician:01:06 PM
== END ==
LOC: ECHO 14:17
PROVIDERS: PCP Family Medicine; Referring Provider Internal Medicine Cardiovascular Disease; Visit Provider Internal Medicine Cardiovascular Disease
DX: I35.1 Nonrheumatic aortic (valve) insufficiency (principal); R06.09 Other forms of dyspnea
CPT/HCPCS: 93306; 94060; 94726; 94729